=== PATIENT | female | born 1955 | race Caucasian/White ===

== ENCOUNTER 2017-12-14 23:40 | Inpatient (IN) | payer OTHER ==
[~2017-12-14] VITALS: Ht 167.6 cm; Wt 117.9 kg
--- NOTE | 2017-12-14 23:52 | PHYS DOC ---
General Chief Complaint: SOB, swelling Stated Complaint: SOA, swelling Time Seen by MD: 23:49 Source: patient, family, EMS Exam Limitations: no limitations Problems: History of Present Illness Initial Comments 62-year-old female to the ED by EMS with dyspnea. Patient states that yesterday she noticed some swelling in her left arm and leg as well as her left breast and upper chest. The swelling increased mildly throughout the day yesterday mainly in her left upper arm with associated discomfort. One hour prior to ED arrival patient states that at rest she developed dyspnea and anterior chest discomfort. She notes some swelling in her anterior upper chest and particularly left breast. She complains of an achy discomfort in her left upper arm and left chest moderate in intensity and worse with movement better with rest. She received 324 mg of aspirin prior to arrival. ED vitals: 97.9, 91, 22, 150/109, 99% room air 1 inch of Nitropaste applied blood pressure improved to 150/63 no improvement of chest pain complaints. Solu-Medrol 125 mg IV, DuoNeb for dyspnea with history of asthma, no relief of symptoms. No prior history of any type bleed (GI, intracranial), no personal history of clotting disorder/DVT. Patient PCP is on Post Timing/Duration: 1 hour Severity: moderate Modifying Factors: worse with movement, improves with rest Associated Symptoms: chest pain, shortness of breath, other Allergies: Coded Allergies: metoclopramide (Verified Allergy, Intermediate, 12/15/17) prochlorperazine (Verified Allergy, Intermediate, 12/15/17) promethazine (Verified Allergy, Intermediate, 12/15/17) theophylline (Verified Allergy, Intermediate, 12/15/17) Past Medical History Medical History: other (asthma, diabetes, hyperlipidemia, hypertension, migraine, GERD, vertigo, hypothyroidism, anxiety, depression) Surgical History: noncontributory Family History Significant Family History: other (multiple family members with DVT/clotting disorder) Social History Smoker: non-smoker Alcohol: none Drugs: none Review of Systems Constitutional: denies chills, denies diaphoresis, denies fever, denies malaise EENTM: denies ear pain (foot), denies nose congestion, denies throat swelling, denies mouth swelling Respiratory: denies cough, shortness of breath, denies wheezing (history of) Cardiovascular: see HPI Gastrointestinal: denies abdominal pain, denies nausea, denies vomiting Genitourinary: denies dysuria, denies frequency, denies hematuria Musculoskeletal: see HPI, denies back pain, denies joint swelling, denies neck pain Skin: denies change in color, denies lumps, denies rash Psychiatric/Neurological: denies headache, denies numbness, denies paresthesia , denies weakness Hematologic/Lymphatic: denies blood clots, denies easy bleeding, denies easy bruising Physical Exam General Appearance: moderate distress (very anxious) Eyes: bilateral eye normal inspection, bilateral eye PERRL, bilateral eye EOMI Ear, Nose, Throat: hearing grossly normal, normal ENT inspection, normal pharynx, other (no face or oropharyngeal soft tissue swelling) Neck: non-tender, supple Respiratory: normal breath sounds, no respiratory distress Cardiovascular: normal peripheral pulses, regular rate, rhythm Gastrointestinal: non tender, soft Back: no CVA tenderness, no vertebral tenderness Extremities: normal range of motion, non-tender, no calf tenderness, pelvis stable, other (one plus pitting lower extremity edema bilaterally, 1+ pitting left upper extremity edema no erythema or palpable subcutaneous abnormality) 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 Interpreted by me. AP chest: Poor technique, cardiac silhouette appears mildly enlarged, no discrete infiltrates interpreted by me D-dimer 1.09 (ultrasound of the left arm and leg ordered), albumin 2.8, otherwise negative blood and urine testing. 0326: Time in dept 3h 46min, prolonged ED course initially due to hemolyzed labs. Now with wait for [employer] tech to arrive from [employer], US studies are in progress. PATIENT: FARIDEH LOVELL ACCOUNT: [id number] : 1955 LOCATION: ER AGE: 62 SEX: F EXAM STATUS: REG ER ORD. PHYSICIAN: ARI AGOSTO DO REASON: L extremity swelling, elevated d-dimer PROCEDURE: VENOUS LOWER EXTREMITY LEFT Left lower extremity venous Doppler ultrasound History: LLE PAIN AND SWELLING Comparison: None. Procedure: Color flow Doppler, Doppler spectral analysis, and 2D images are obtained with and without compression in the area of the common femoral vein, superficial femoral vein - femoral vein junction, main femoral vein (superficial femoral vein) and popliteal vein. Veins of the proximal calf are also imaged. Findings: There is normal color flow, augmentation, and compressibility of all visualized vein segments. No evidence of deep venous thrombus is present. IMPRESSION: No evidence of left lower extremity deep venous thrombosis. Electronically signed by: Dixon Lovell MD (12/15/2017 3:41 AM) [facility] DICTATED AND SIGNED BY: DIXON LOVELL MD DATE: 12/15/17 0340 CC: LOY GREEN DO; ARI AGOSTO DO ~ PATIENT: FARIDEH LOVELL ACCOUNT: [id number] : 1955 LOCATION: ER AGE: 62 SEX: F EXAM STATUS: REG ER ORD. PHYSICIAN: ARI AGOSTO DO REASON: L extremity swelling, elevated d-dimer PROCEDURE: VENOUS UPPER EXTREMITY LEFT Left upper extremity venous Doppler ultrasound History: LUE PAIN AND SWELLING, elevated D DIMER Comparison: None. Procedure: Color flow Doppler, Doppler spectral analysis, and 2D images are obtained with and without compression in the jugular vein, subclavian vein, axillary vein, brachial vein, radial vein, ulnar vein, and basilic and cephalic veins. Findings: The left internal jugular vein is patent. The left subclavian vein is patent. There is occlusive thrombus in the left axillary vein. There is occlusive thrombus in the left brachial vein in the upper arm. There is occlusive thrombus in the left basilic vein in the upper arm. The left cephalic vein is patent. Left ulnar and radial veins are patent. IMPRESSION: Study is positive for DVT. There is occlusive thrombus in the left axillary and brachial veins. Electronically signed by: Dixon Lovell MD (12/15/2017 3:44 AM) [facility] DICTATED AND SIGNED BY: DIXON LOVELL MD DATE: 12/15/17 034 CC: LOY GREEN DO; SURENDRA,ARI K DO ~ 0443: PE needs to be ruled out. Adequate peripheral IV access in the right hand for medication administration, not usable for CTA study. Multiple attempts to establish larger more central vascular access unsuccessful, patient will be treated with Lovenox and VQ study may be obtained as an inpatient. 0450: Dr. Araya accepts inpatient telemetry admission for anticoagulation, serial cardiac enzymes, VQ scan, and cardiology consultation later today. Impressions: Chest pain Left upper extremity axillary and brachial DVT Moderate protein malnutrition Uncontrolled hypertension DM Departure Time of Disposition: 05:04 Disposition: 09 ADMITTED INPATIENT Condition: STABLE AIR AGOSTO DO Dec 14, 2017 23:52
--- NOTE | 2017-12-15 00:49 | EKG ---
[address] [address] Test Date: 2017-12-14 Test Time: 23:43:43 Pat Name: FARIDEH LOVELL Department: Room: Gender: F [employer] Operator: : 1955 Requested By: ARI AGOSTO Order Number: [id number] Reading MD: Measurements Intervals [place] Rate: 91 P: 65 DE: 178 QRS: 9 QRSD: 78 T: 79 QT: 356 QTc: 440 Interpretive Statements SINUS RHYTHM QRS(T) CONTOUR ABNORMALITY CONSIDER ANTEROSEPTAL MYOCARDIAL DAMAGE T ABNORMALITY IN HIGH LATERAL LEADS ABNORMAL ECG RI6.01 No previous ECG available for comparison
[2017-12-15] MEDS ORDERED: methylPREDNISolone SOD SUCC PF 125 MG/2 ML VIAL. IV ONE (01:00)
[2017-12-15] MEDS ORDERED: NITROGLYCERIN OINT 1 GM PACKET. TP ONE (01:00)
[2017-12-15] MEDS ORDERED: IPRATRPIUM/ALBUTEROL 0.5/2.5MG 3 ML NEBU. NEB ONE (01:00)
[2017-12-15 01:22] LABS: BASO # 0.1 x10^3/uL (0.0-0.2); BASO % 1 % (0-3); EOS # 0.3 x10^3/uL (0.0-0.7); EOS % 3 % (0-3); HEMATOCRIT 36.8 % (36.0-47.0); LYMPH # 2.7 x10^3/uL (1.0-4.8); LYMPH % 27 % (24-48); MEAN CORPUSCULAR HEMOGLOBIN 30 pg (25-35); MEAN CORPUSCULAR HGB CONC 33 g/dL (31-37); MEAN CORPUSCULAR VOLUME 91 fL (79-100); MONO # 0.6 x10^3/uL (0.0-1.1); MONO % 6 % (0-9); NEUT # 6.5 x10^3uL (1.8-7.7); NEUT % 63 % (31-73); PLATELET COUNT 262 x10^3/uL (140-400); RED BLOOD COUNT 4.04 x10^6/uL (3.50-5.40); RED CELL DISTRIBUTION WIDTH 14.4 % (11.5-14.5); WHITE BLOOD COUNT 10.2 x10^3/uL (4.0-11.0)
[2017-12-15 01:35] LABS: ALBUMIN 2.8 g/dL (3.4-5.0); ALBUMIN/GLOBULIN RATIO 0.7 (1.0-1.7); CALCIUM 8.7 mg/dL (8.5-10.1); CREATININE 0.9 mg/dL (0.6-1.0); GFR 63.7; TOTAL BILIRUBIN 0.1 mg/dL (0.2-1.0); TOTAL PROTEIN 6.9 g/dL (6.4-8.2)
[2017-12-15 02:13] LABS: BACTERIA,URINE 0 /HPF (0-FEW); BILIRUBIN,URINE NEG (NEG); CLARITY,URINE CLEAR; COLOR,URINE YELLOW; GLUCOSE,URINE NEG (NEG); NITRITE,URINE NEG (NEG); RBC,URINE 0 /HPF (0-2); SQUAMOUS EPITHELIAL CELL,UR MOD /LPF; UROBILINOGEN,URINE 0.2 mg/dL (0.2 mg/dL); WBC,URINE RARE /HPF (0-4)
[2017-12-15] MEDS ORDERED: LORazepam 2 MG/ML VIAL IV ONE (03:00)
--- NOTE | 2017-12-15 03:44 | RAD ---
Left lower extremity venous Doppler ultrasound History: LLE PAIN AND SWELLING Comparison: None. Procedure: Color flow Doppler, Doppler spectral analysis, and 2D images are obtained with and without compression in the area of the common femoral vein, superficial femoral vein - femoral vein junction, main femoral vein (superficial femoral vein) and popliteal vein. Veins of the proximal calf are also imaged. Findings: There is normal color flow, augmentation, and compressibility of all visualized vein segments. No evidence of deep venous thrombus is present. IMPRESSION: No evidence of left lower extremity deep venous thrombosis. Electronically signed by: Dixon Lovell MD (12/15/2017 3:41 AM) [facility]
--- NOTE | 2017-12-15 03:47 | RAD ---
Left upper extremity venous Doppler ultrasound History: LUE PAIN AND SWELLING, elevated D DIMER Comparison: None. Procedure: Color flow Doppler, Doppler spectral analysis, and 2D images are obtained with and without compression in the jugular vein, subclavian vein, axillary vein, brachial vein, radial vein, ulnar vein, and basilic and cephalic veins. Findings: The left internal jugular vein is patent. The left subclavian vein is patent. There is occlusive thrombus in the left axillary vein. There is occlusive thrombus in the left brachial vein in the upper arm. There is occlusive thrombus in the left basilic vein in the upper arm. The left cephalic vein is patent. Left ulnar and radial veins are patent. IMPRESSION: Study is positive for DVT. There is occlusive thrombus in the left axillary and brachial veins. Electronically signed by: Dixon Lovell MD (12/15/2017 3:44 AM) [facility]
[2017-12-15] MEDS ORDERED: CONTRAST GIVEN MC PRN (04:15)
[2017-12-15] MEDS ORDERED: ONDANSETRON ODT 4 MG TAB.RAPDIS PO ONE (04:30)
[2017-12-15] MEDS ORDERED: IOHEXOL 300 MG/ML 75 ML VIAL. IV ONE (04:30)
[2017-12-15] MEDS ORDERED: HYDROcodone/APAP 7.5/325MG 1 TAB TABLET PO ONE (04:30)
[2017-12-15] MEDS ORDERED: ANTI-COAG MONITOR BY PHARMACY. MC PRN (04:45)
[2017-12-15] MEDS ORDERED: ACETAMINOPHEN 325 MG TABLET PO PRN (05:00)
[2017-12-15] MEDS ORDERED: ENOXAPARIN ** NOTE DOSE ** SYRINGE SQ ONE (05:00)
[2017-12-15] MEDS ORDERED: ONDANSETRON PF 4 MG/2 ML VIAL. IV PRN (05:00)
[2017-12-15] MEDS ORDERED: NITROGLYCERIN SUBLINGUAL 0.4 MG BOTTLE OF 25. SL PRN (05:00)
[2017-12-15 06:06] VITALS: BP 167/93
[2017-12-15] MEDS ORDERED: OMEP40CA5 PO (06:44)
[2017-12-15] MEDS ORDERED: MULT80TA PO (06:44)
[2017-12-15] MEDS ORDERED: ALPR0.5T6 PO (06:44)
[2017-12-15] MEDS ORDERED: RIZA10TA PO (06:44)
[2017-12-15] MEDS ORDERED: DICL75TA PO (06:44)
[2017-12-15] MEDS ORDERED: ESZO3TAB28 PO (06:44)
[2017-12-15] MEDS ORDERED: LAMO150T2 PO (06:44)
[2017-12-15] MEDS ORDERED: CRESTOR10 MG PO (06:44)
[2017-12-15] MEDS ORDERED: RAMI10CA PO (06:44)
[2017-12-15] MEDS ORDERED: LEVO125T5 PO (06:44)
[2017-12-15] MEDS ORDERED: TOPI100T8 PO (06:44)
[2017-12-15] MEDS ORDERED: BUPR100T8 PO (06:44)
[2017-12-15] MEDS ORDERED: ALBU8.5H8 INH (06:44)
[2017-12-15] MEDS ORDERED: BUME1TAB PO (06:44)
[2017-12-15] MEDS ORDERED: SUCR1TAB PO (06:44)
[2017-12-15] MEDS ORDERED: DULO30CA2 PO (06:44)
[2017-12-15] MEDS ORDERED: MECL25TA3 PO (06:44)
[2017-12-15] MEDS ORDERED: ZIPR80CA2 PO (06:44)
[2017-12-15] MEDS ORDERED: CHOL10003 PO (06:44)
[2017-12-15] MEDS ORDERED: BUDE10.2 IH (06:44)
--- NOTE | 2017-12-15 07:22 | RAD ---
Portable AP view CXR: Clinical indications: Shortness of air tonight. Comparison: None available. Findings: No acute lung infiltrate or pleural effusion or pulmonary edema or lung mass or pneumothorax is seen. The heart size, pulmonary vasculature, mediastinum and both lala are unremarkable. Impression: No acute radiographic abnormality is seen.
[2017-12-15] MEDS ORDERED: PNEUMOCOCCAL VAX SCREEN. MC ONE (07:30)
--- NOTE | 2017-12-15 07:46 | NUR ---
The patient, FARIDEH LOVELL, 62 y/o, F admitted by KIARRA VASQUEZ DO, was given written information regarding hospital policies, unit procedures and contact persons. Valuables were checked and left in room with pt. is at the bedside. Pt report that she started to notice some swelling of her left arm and leg last night, they was an aching pressure on her chest. When dressing for bed she notice that there was swelling starting on her chest and that the veins on her chest were popping out more than normal. LUE DVT found, unable to get a large enough IV in for Chest CT in ER, VQ scan ordered instead.
[2017-12-15] MEDS: IPRATRPIUM/ALBUTEROL 0.5/2.5MG 3 ML NEBU. NEB SCH ×2 (08:00→10:21)
[2017-12-15] MEDS ORDERED: ALBUTEROL SULFATE 2.5 MG/3 ML NEBU. NEB PRN ×2 (08:45→16:15)
[2017-12-15] MEDS ORDERED: PNEUMOC CONJ VACC 23-VALENT 0.5 ML VIAL. VAX IM ONE (09:00)
[2017-12-15] MEDS: HYDROcodone/APAP 5/325MG 1 TAB TABLET PO PRN ×2 (10:13→15:52)
[2017-12-15 11:00] VITALS: BP 124/73
--- NOTE | 2017-12-15 11:24 | PDOC2 ---
WALLY LOPEZ ASSISTANT IN NURSING 12/15/17 1124: CONSULT Date of Admission DATE: 12/15/17 TIME: 11:24 Reason for Consult: chest pain Problem List Problems Medical Problems: (1) DVT of left axillary vein, acute Status: Acute History of Present Illness Ms Vazquez is a 62 year old female who presents with complaints of chest pain , left arm and breast swelling. She reports she noticed the symptoms while getting dressed. She was given NTG in the ED which did improve her chest discomfort. She denies any increase with exertion or position change. She denies any prior chest discomfort but does report significant fatigue over the last week or so. She denies significant dyspnea or congestive symptoms. She denies palpitations. She does report intermittent lightheadedness without syncope. Past Medical History hypertension, hyperlipidemia, borderline diabetes, meniere's disease, asthma, breast cancer, anxiety depression, breast cancer, hypothyroid, migraines, vertigo Past Surgical History cochlear implant, right mastectomy, knee surgery, hysterectomy, cholecystectomy Family History multiple family members with DVTs, coronary disease, hypertension Social History non smoker, no significant ETOH, no illicit drugs Current Medications Current Medications Methylprednisolone Sodium Succinate (SOLU-Medrol 125MG VIAL) 125 mg 1X ONCE IV Last administered on 12/15/17at 01:00; Start 12/15/17 at 01:00; Stop 12/15/17 at 01:01; Status DC Albuterol/ Ipratropium (Duoneb) 3 ml 1X ONCE NEB Last administered on at 01:00; Start 12/15/17 at 01:00; Stop 12/15/17 at 01:01; Status DC Nitroglycerin (Nitro-Bid Oint) 1 inch 1X ONCE TP Last administered on at 01:00; Start 12/15/17 at 01:00; Stop 12/15/17 at 01:01; Status DC Lorazepam (Ativan) 1 mg 1X ONCE IV ; Start 12/15/17 at 03:00; Stop 12/15/17 at 04 :22; Status DC Acetaminophen/ Hydrocodone Bitart (Lortab 7.5/325) 1 tab 1X ONCE PO Last administered on 12/15/17at 04:55; Start 12/15/17 at 04:30; Stop 12/15/17 at 04:31; Status DC Ondansetron HCl (Zofran Odt) 8 mg 1X ONCE PO Last administered on 12/15/17at 05: 00; Start 12/15/17 at 04:30; Stop 12/15/17 at 04:31; Status DC Iohexol (Omnipaque 300 Mg/ml) 75 ml 1X ONCE IV ; Start 12/15/17 at 04:30; Stop 12/15/17 at 04:31; Status DC Info (Do NOT chart on this entry -- for MONITORING) 1 each PRN DAILY PRN MC SEE COMMENTS; Start 12/15/17 at 04:15; Stop 12/17/17 at 04:14 Enoxaparin Sodium (Lovenox 120mg Syringe) 120 mg Q12HR SQ ; Start 12/15/17 at 21: 00 Enoxaparin Sodium (Lovenox 120mg Syringe) 120 mg 1X ONCE SQ Last administered on 12/15/17at 04:55; Start 12/15/17 at 05:00; Stop 12/15/17 at 05:02; Status DC Info (Anti-Coagulation Monitoring By Pharmacy) 1 each PRN DAILY PRN MC SEE COMMENTS; Start 12/15/17 at 04:45; Status Cancel Ondansetron HCl (Zofran) 4 mg PRN Q4HRS PRN IV NAUSEA/VOMITING; Start 12/15/17 at 05:00; Stop 12/16/17 at 04:59 Acetaminophen (Tylenol) 650 mg PRN Q4HRS PRN PO FEVER; Start 12/15/17 at 05:00; Stop 12/16/17 at 04:59 Nitroglycerin (Nitrostat) 0.4 mg PRN Q5MIN PRN SL CHEST PAIN; Start 12/15/17 at 05:00; Stop 12/16/17 at 04:59 Albuterol/ Ipratropium (Duoneb) 3 ml RTQID NEB ; Start 12/15/17 at 08:00; Stop at 10:39; Status DC Acetaminophen/ Hydrocodone Bitart (Lortab 5/325) 1 tab PRN Q4HRS PRN PO SEVERE PAIN Last administered on 12/15/17at 10:13; Start 12/15/17 at 05:00 Pneumococcal Polyvalent Vaccine (Do NOT chart on this entry -- for MONITORING) 1 each 1X ONCE MC ; Start 12/15/17 at 07:30; Stop 12/15/17 at 07:31; Status UNV Pneumococcal Polyvalent Vaccine (Pneumovax 23) 0.5 ml ONCE ONCE VAX IM ; Start 12/15/17 at 09:00; Stop 12/15/17 at 09:01; Status DC Albuterol Sulfate (Ventolin) 2.5 mg Q2HR PRN NEB SHORTNESS OF BREATH; Start 12/15/17 at 08:45 Active Scripts Active Reported Geodon (Ziprasidone Hcl) 80 Mg Capsule 80 Mg PO BID Topiramate 100 Mg Tablet 100 Mg PO BID Symbicort 160-4.5 Mcg Inhaler (Budesonide/Formoterol Fumarate) 10.2 Gm Hfa.aer.ad 2 Puff IH BID Sucralfate 1 Gm Tablet 1 Gm PO QID Crestor (Rosuvastatin Calcium) 10 Mg Tablet 10 Mg PO DAILY Ramipril 10 Mg Capsule 10 Mg PO DAILY Proair Hfa Inhaler (Albuterol Sulfate) 8.5 Gm Hfa.aer.ad 2 Puff INH PRN Q4-6HRS PRN Omeprazole 40 Mg Capsule.dr 40 Mg PO DAILYAC Maxalt (Rizatriptan Benzoate) 10 Mg Tablet 10 Mg PO Meclizine Hcl 25 Mg Tablet 25 Mg PO PRN TID PRN Lunesta (Eszopiclone) 3 Mg Tablet 2 Mg PO QHS Levothyroxine Sodium 125 Mcg Tablet 125 Mcg PO DAILY06 Lamotrigine 150 Mg Tablet 150 Mg PO DAILY Cymbalta (Duloxetine Hcl) 30 Mg Capsule.dr 90 Mg PO DAILY Diclofenac Sodium 75 Mg Tablet.dr 75 Mg PO DAILY Vitamin D3 (Cholecalciferol (Vitamin D3)) 1,000 Unit Tablet 1,000 Unit PO DAILY Centrum Multigummies (Multivit-Minerals/Folic Acid) 80 Mcg Tab.chew 80 Mcg PO DAILY Bupropion Hcl Sr (Bupropion Hcl) 100 Mg Tablet.er 100 Mg PO DAILY Bumetanide 1 Mg Tablet 0.5 Mg PO DAILY Alprazolam 0.5 Mg Tablet 0.5 Mg PO BID PRN Allergies: Coded Allergies: metoclopramide (Verified Allergy, Intermediate, 12/15/17) prochlorperazine (Verified Allergy, Intermediate, 12/15/17) promethazine (Verified Allergy, Intermediate, 12/15/17) theophylline (Verified Allergy, Intermediate, 12/15/17) Review of System as per HPI or negative General: Alert, Oriented X3, Cooperative, No acute distress HEENT: Atraumatic, EOMI, Mucous membr. moist/pink Lungs: Clear to auscultation, Normal air movement Heart: Regular rate, Normal S1, Normal S2 Abdomen: Normal bowel sounds, Soft, No tenderness Extremities: No cyanosis, Normal pulses, Other (+ left arm edema) Neuro: Normal speech, Strength at 5/5 X4 ext Psych/Mental Status: Mental status NL, Mood NL VITALS Vital Signs Date Time Temp Pulse Resp B/P (MAP) Pulse Ox O2 Delivery O2 Flow Rate FiO2 12/15/17 10:13 18 Room Air 12/15/17 06:06 98.1 101 167/93 (117) 93 Labs Laboratory Tests Test 12/15/17 01:00 12/15/17 01:48 12/15/17 04:51 12/15/17 08:55 White Blood Count 10.2 x10^3/uL (4.0-11.0) Red Blood Count 4.04 x10^6/uL (3.50-5.40) Hemoglobin 12.0 g/dL (12.0-15.5) Hematocrit 36.8 % (36.0-47.0) Mean Corpuscular Volume 91 fL (79-100) Mean Corpuscular Hemoglobin 30 pg (25-35) Mean Corpuscular Hemoglobin Concent 33 g/dL (31-37) Red Cell Distribution Width 14.4 % (11.5-14.5) Platelet Count 262 x10^3/uL (140-400) Neutrophils (%) (Auto) 63 % (31-73) Lymphocytes (%) (Auto) 27 % (24-48) Monocytes (%) (Auto) 6 % (0-9) Eosinophils (%) (Auto) 3 % (0-3) Basophils (%) (Auto) 1 % (0-3) Neutrophils # (Auto) 6.5 x10^3uL (1.8-7.7) Lymphocytes # (Auto) 2.7 x10^3/uL (1.0-4.8) Monocytes # (Auto) 0.6 x10^3/uL (0.0-1.1) Eosinophils # (Auto) 0.3 x10^3/uL (0.0-0.7) Basophils # (Auto) 0.1 x10^3/uL (0.0-0.2) D-Dimer (Alessandra) 1.09 mg/L (0.00-0.50) Sodium Level 138 mmol/L (136-145) Potassium Level 4.0 mmol/L (3.5-5.1) Chloride Level 107 mmol/L (98-107) Carbon Dioxide Level 19 mmol/L (21-32) Anion Gap 12 (6-14) Blood Urea Nitrogen 20 mg/dL (7-20) Creatinine 0.9 mg/dL (0.6-1.0) Estimated GFR (Cockcroft-Gault) 63.7 BUN/Creatinine Ratio 22 (6-20) Glucose Level 112 mg/dL (70-99) Calcium Level 8.7 mg/dL (8.5-10.1) Total Bilirubin 0.1 mg/dL (0.2-1.0) Aspartate Amino Transf (AST/SGOT) 18 U/L (15-37) Alanine Aminotransferase (ALT/SGPT) 23 U/L (14-59) Alkaline Phosphatase 109 U/L (46-116) Creatine Kinase 42 U/L (26-192) Troponin I Quantitative < 0.017 ng/mL (0-0.055) < 0.017 ng/mL (0-0.055) < 0.017 ng/mL (0-0.055) CC-Rjp-I-Type Natriuretic Peptide 40 pg/mL (0-124) Total Protein 6.9 g/dL (6.4-8.2) Albumin 2.8 g/dL (3.4-5.0) Albumin/Globulin Ratio 0.7 (1.0-1.7) Lipase 67 U/L (73-393) Urine Collection Type Unknown Urine Color Yellow Urine Clarity Clear Urine pH 7.0 Urine Specific Ponce 1.015 Urine Protein Neg (NEG-TRACE) Urine Glucose (UA) Neg mg/dL (NEG) Urine Ketones (Stick) Neg mg/dL (NEG) Urine Blood Neg (NEG) Urine Nitrite Neg (NEG) Urine Bilirubin Neg (NEG) Urine Urobilinogen Dipstick 0.2 mg/dL (0.2 mg/dL) Urine Leukocyte Esterase Neg (NEG) Urine RBC 0 /HPF (0-2) Urine WBC Rare /HPF (0-4) Urine Squamous Epithelial Cells Mod /LPF Urine Bacteria 0 /HPF (0-FEW) Images upper arm sono - IMPRESSION: Study is positive for DVT. There is occlusive thrombus in the left axillary and brachial veins. Lower extremity - negative for DVT. Assessment/Plan 1. Chest pain - NC ruled out. Check echo, lipids. Suggest OP MPI. 2. DVT left axillary and brachial veins - Anticoagulation for 3-6 months. mgmt per PCP. ? underlying coagulopathy. Consider check factor V, Protein s, c. 3. hypertension - resume home meds 4. hyperlipidemia - check lipids Problems: CARYN PARKER MD 12/15/17 1651: CONSULT Allergies: Coded Allergies: metoclopramide (Verified Allergy, Intermediate, 12/15/17) prochlorperazine (Verified Allergy, Intermediate, 12/15/17) promethazine (Verified Allergy, Intermediate, 12/15/17) theophylline (Verified Allergy, Intermediate, 12/15/17) Assessment/Plan Patient seen and examined. Agree with PATHOLOGY SECRETARY's assessment and plan. Chest pain with atypical features and most probably musculoskeletal Myocardial infarction been ruled out Check 2-D echo to assess LV function and rule out wall motion abnormalities Ischemic workup in the form of stress test could be considered as an outpatient Thank you for your consultation Problems: WALLY LOPEZ APRN Dec 15, 2017 11:24 CARYN PARKER MD Dec 15, 2017 16:51
--- NOTE | 2017-12-15 12:57 | RAD ---
V/Q lung scan Clinical indications: Elevated d-dimer. Chest pain. Dyspnea. DVT of the left upper extremity. Comparison: Chest x-ray performed today. No previous lung scan available. Technique: After inhalation of 22.0 mCi of xenon-133 gas, anterior and posterior planar images of both lung hendricks were performed in the inspiration and equilibrium and washout phases. After IV infusion of 5.2 mCi of technetium 99m MAA, multiplanar images of both lung hendricks were performed. Findings: No ventilatory defect or significant retention of radiotracer activity is seen. No segmental perfusion defect is seen. IMPRESSION: Low probability for pulmonary embolism.
--- NOTE | 2017-12-15 15:33 | RAD ---
CT angiography chest 12/15/2017 with contrast Indication: Breast cancer. Left upper extremity deep venous thrombosis. Comparison: Ventilation perfusion scintigraphy 12/15/2017. Technique: Multiple axial CT images of the chest were obtained after the intravenous administration of 74 cc Omnipaque 300. Coronal and sagittal reformats are provided. Maximum intensity projection images of the pulmonary vasculature are provided. Findings: The thyroid gland is normal in appearance. There are no pathologically enlarged mediastinal or hilar lymph nodes. Surgical clips are identified in the right axilla. There is mild edema in the left axilla with few nonenlarged left axillary lymph nodes measuring up to a 6 mm by short axis. Heart size is within normal limits. Thoracic aorta is normal in course and caliber. There is no pericardial effusion. There is adequate opacification of the pulmonary arterial system for evaluation of the central pulmonary artery, main pulmonary artery arteries, lobar and segmental pulmonary arteries. Subsegmental arteries are limited in evaluation due to inadequate contrast opacification. No filling defects are identified to suggest acute or chronic pulmonary emboli. There is subsegmental atelectasis at the left lung base. Bandlike density in the right upper lobe is suggestive of subsegmental atelectasis. No suspicious solid noncalcified pulmonary nodules are visualized. There are no pleural effusions. There is no pulmonary vascular congestion. There is no pneumothorax. Gallbladder is surgically absent. Partial gastrectomy changes are present. Spinal epidural leads terminate in the posterior epidural space of the midthoracic spine. No suspicious osseous abnormality is identified. Impression: There is no acute pulmonary embolism with limited evaluation of the subsegmental pulmonary arteries. There is mild edema in the left axilla but nonenlarged left axillary lymph nodes, likely secondary to inflammatory changes and edema in the left upper extremity. PQRS Compliance Statement: One or more of the following individualized dose reduction techniques were utilized for this examination: 1. Automated exposure control 2. Adjustment of the mA and/or kV according to patient size 3. Use of iterative reconstruction technique
--- NOTE | 2017-12-15 15:41 | HP ---
ADMIT DATE: 12/15/2017 REASON FOR ADMISSION: Left upper extremity DVT. HISTORY OF PRESENT ILLNESS: This is a 62-year-old female who 2 nights ago noticed that her leg started hurting her with the left more than the right. Yesterday morning, she got up and noticed her left arm is so swollen that her knuckles hurt. She also noticed the left side of her body was enlarged and her veins are popping out. Her chest was hurting and she felt like she could not breathe. She has a significant family history of multiple people with blood clot also. She had taken a 2-hour car drive to [place] over the weekend. She states her brother noticed that she was quite fatigued. PAST MEDICAL HISTORY: Meniere's disease, degenerative disk disease of the back, sciatica, left knee pain, hypothyroidism, hypertension, hyperlipidemia and breast cancer in the past. She was seen in September, had a mammogram, which was negative. PAST SURGICAL HISTORY: Right mastectomy and reconstruction. FAMILY HISTORY: Positive for cancer and heart disease. Mother had tachycardia and dysrhythmias. Brother with tachycardia. Sister with heart disease. Father with heart attack at 52. IMMUNIZATIONS: Did not get the flu shot. REVIEW OF SYSTEMS: Weight increased 14 pounds and rest consistent with history of present illness. OBJECTIVE: VITAL SIGNS: Blood pressure 124/73, pulse 101, temperature 98.3, respiratory rate 20, pulse ox 91% on room air, but others 96, 95. HEENT: Hearing was normal. Eyes were clear. Nose was patent. Throat was clear. NECK: Supple without adenopathy. LUNGS: Clear to auscultation. CARDIOVASCULAR: Regular rhythm and rate without murmur. ABDOMEN: Soft, obese, nontender. EXTREMITIES: Without edema, no cords noted. Left arm extremely swollen. It is neurologically intact. Color is good. She has good capillary refill and radial pulses are strong. DIAGNOSTIC DATA: Lower extremity ultrasounds are negative for DVT. Upper extremity ultrasound reveals an occlusive thrombus in the left axillary and brachial veins and the subclavian vein is patent. V/Q scan shows low probability for pulmonary embolism. CT of the chest without contrast has not been read. ASSESSMENT: 1. Large left upper extremity deep vein thrombosis, questionable etiology. 2. History of breast cancer. 3. Morbid obesity. 4. Sleep apnea suspect. 5. Meniere's disease. 6. Chronic low back pain. 7. Hypertension. 8. Hypothyroidism. PLAN: Full dose anticoagulation for at least a week and if she is not better, may consider lysis. We will start her on Eliquis tomorrow and will await the results of CT, also was seen by Cardiology and should have a Lexiscan done as an outpatient. KIARRA VASQUEZ DO DR: ISABEL/sky JOB#: [id number] / [id number]
[2017-12-15] MEDS ORDERED: ALBUTEROL SULFATE 8GM INHALER. INH PRN (16:00)
[2017-12-15] MEDS ORDERED: ALPRAZolam 0.5 MG TABLET PO PRN (16:00)
[2017-12-15] MEDS ORDERED: MECLIZINE 12.5 MG TABLET. PO PRN (16:15)
[2017-12-15 16:16] VITALS: BP 147/83
[2017-12-15] MEDS: BUMETANIDE 1 MG TABLET PO SCH (17:52)
[2017-12-15] MEDS: PRENATAL MULTIVITAMIN TABLET. PO SCH (17:53)
[2017-12-15] MEDS: lamoTRIgine 150 MG TABLET. PO SCH (17:53)
[2017-12-15] MEDS: DULoxetine HCL 30 MG CAPSULE.DR PO SCH (17:53)
[2017-12-15] MEDS: LISINOPRIL 20 MG TABLET PO SCH (17:54)
[2017-12-15] MEDS: buPROPion SR 100 MG TABLET.SA. PO SCH (17:54)
[2017-12-15] MEDS: LEVOTHYROXINE 125 MCG TABLET PO SCH (17:54)
[2017-12-15] MEDS: PANTOPRAZOLE 40 MG TABLET. PO SCH (17:54)
[2017-12-15] MEDS: DICLOFENAC SODIUM 75 MG TABLET.DR PO SCH (17:54)
[2017-12-15] MEDS: CHOLECALCIFEROL (VITAMIN D3) 1,000 UNIT TABLET PO SCH (17:54)
[2017-12-15] MEDS: SUCRALFATE 1 GM TABLET. PO SCH ×2 (17:55→20:38)
[2017-12-15] MEDS ORDERED: BUDESONIDE 0.5 MG/2 ML NEBU NEB SCH (20:00)
[2017-12-15] MEDS: ALBUTEROL SULFATE 2.5 MG/3 ML NEBU. NEB SCH (20:00)
[2017-12-15 20:01] VITALS: BP 100/60
[2017-12-15] MEDS: TOPIRAMATE 100 MG TABLET. PO SCH (20:37)
[2017-12-15] MEDS: ZIPRASIDONE 80 MG CAPSULE. PO SCH (20:40)
[2017-12-15] MEDS ORDERED: ZOLPIDEM 5 MG TABLET. PO PRN (21:00)
[2017-12-15] MEDS ORDERED: ENOXAPARIN ** NOTE DOSE ** SYRINGE SQ SCH (21:00)
[2017-12-15] MEDS ORDERED: ATORVASTATIN CALCIUM 20 MG TABLET PO SCH (21:00)
[2017-12-15] MEDS: BUDESONIDE 0.5 MG/2 ML NEBU NEB SCH (21:31)
[2017-12-15 23:13] VITALS: BP 131/75
[2017-12-16] MEDS: LEVOTHYROXINE 125 MCG TABLET PO SCH (05:37)
[2017-12-16] MEDS: ALBUTEROL SULFATE 2.5 MG/3 ML NEBU. NEB SCH ×2 (05:39→09:54)
[2017-12-16 06:10] VITALS: BP 141/84
[2017-12-16 06:37] LABS: BASO % 0 % (0-3); EOS # 0.1 x10^3/uL (0.0-0.7); EOS % 1 % (0-3); HEMATOCRIT 37.1 % (36.0-47.0); HEMOGLOBIN 12.2 g/dL (12.0-15.5); LYMPH # 3.3 x10^3/uL (1.0-4.8); LYMPH % 29 % (24-48); MEAN CORPUSCULAR HEMOGLOBIN 30 pg (25-35); MEAN CORPUSCULAR HGB CONC 33 g/dL (31-37); MEAN CORPUSCULAR VOLUME 91 fL (79-100); MONO # 0.6 x10^3/uL (0.0-1.1); MONO % 5 % (0-9); NEUT # 7.5 x10^3uL (1.8-7.7); NEUT % 65 % (31-73); PLATELET COUNT 308 x10^3/uL (140-400); WHITE BLOOD COUNT 11.4 x10^3/uL (4.0-11.0)
[2017-12-16 06:45] LABS: ALBUMIN 2.9 g/dL (3.4-5.0); ALBUMIN/GLOBULIN RATIO 0.7 (1.0-1.7); CALCIUM 9.2 mg/dL (8.5-10.1); CREATININE 0.9 mg/dL (0.6-1.0); GFR 63.7; MAGNESIUM 1.9 mg/dL (1.8-2.4); POTASSIUM 3.8 mmol/L (3.5-5.1); TOTAL BILIRUBIN 0.1 mg/dL (0.2-1.0); TOTAL PROTEIN 7.2 g/dL (6.4-8.2)
[2017-12-16] MEDS: BUDESONIDE 0.5 MG/2 ML NEBU NEB SCH (08:00)
[2017-12-16] MEDS ORDERED: APIXABAN 5 MG TABLET. PO SCH (09:00)
[2017-12-16] MEDS: PANTOPRAZOLE 40 MG TABLET. PO SCH (09:00)
[2017-12-16] MEDS: BUMETANIDE 1 MG TABLET PO SCH (09:01)
[2017-12-16] MEDS: CHOLECALCIFEROL (VITAMIN D3) 1,000 UNIT TABLET PO SCH (09:01)
[2017-12-16] MEDS: DULoxetine HCL 30 MG CAPSULE.DR PO SCH (09:02)
[2017-12-16 09:03] VITALS: BP 141/84
[2017-12-16] MEDS: LISINOPRIL 20 MG TABLET PO SCH (09:03)
[2017-12-16] MEDS: TOPIRAMATE 100 MG TABLET. PO SCH (09:03)
[2017-12-16] MEDS: buPROPion SR 100 MG TABLET.SA. PO SCH (09:03)
[2017-12-16] MEDS: PRENATAL MULTIVITAMIN TABLET. PO SCH (09:03)
[2017-12-16] MEDS: DICLOFENAC SODIUM 75 MG TABLET.DR PO SCH (09:04)
[2017-12-16] MEDS: ZIPRASIDONE 80 MG CAPSULE. PO SCH (09:04)
[2017-12-16] MEDS: lamoTRIgine 150 MG TABLET. PO SCH (09:04)
--- NOTE | 2017-12-16 11:02 | CARD ---
MR#: [id number] Date of Study: 12/16/2017 Ordering Physician: WALLY LOPEZ, Referring Physician: KIARRA VASQUEZ Tech: Kami Davis RDCS APPROVED REPORT EXAM: Two-dimensional and M-mode echocardiogram with Doppler and color Doppler. Other Information Quality : Technically Limited Technically limited study due to body habitus. INDICATION Chest Pain 2D DIMENSIONS RVDd2.5 (2.9-3.5cm)Left Atrium(2D)3.0 (1.6-4.0cm) IVSd1.1 (0.7-1.1cm)Aortic Root(2D)2.5 (2.0-3.7cm) LVDd3.6 (3.9-5.9cm)LVOT Diameter1.9 (1.8-2.4cm) PWd1.1 (0.7-1.1cm)LVDs2.6 (2.5-4.0cm) FS (%) 28.4 %SV31.2 ml LVEF(%)55.7 (>50%) Aortic Valve AoV Peak Rj.152.8cm/sAoV VTI25.9cm AO Peak GR.9.3mmHgLVOT Peak Rj.132.8cm/s LVOT VTI 26.21cmAO Mean GR.5mmHg SHEYLA (VMAX)2.16eq3ECC (VTI)2.75cm2 Mitral Valve MV E Hvrjojvr792.2cm/sMV DECEL [id number] MV A Dywsaqxb09.1cm/sE/A Ratio1.3 Pulmonary Vein S1 Xvxtnbbl60.3cm/sD2 Kqfitnqk74.0cm/s LEFT VENTRICLE The left ventricle is normal size. There is normal left ventricular wall thickness. The left ventricu lar systolic function is normal and the ejection fraction is within normal range. The Ejection Fracti on is 55-60%. There is normal LV segmental wall motion. Transmitral Doppler flow pattern is Grade II- pseudonormal filling dynamics. RIGHT VENTRICLE The right ventricle is normal size. The right ventricular systolic function is normal. ATRIA The left atrium size is normal. The right atrium size is normal. The interatrial septum is intact wit h no evidence for an atrial septal defect or patent foramen ovale as noted on 2-D or Doppler imaging. AORTIC VALVE The aortic valve is not well visualized. Doppler and Color Flow revealed no significant aortic regurg itation. There is no significant aortic valvular stenosis. MITRAL VALVE The mitral valve is calcified but opens well. There is no evidence of mitral valve prolapse. There is no mitral valve stenosis. Doppler and Color-flow revealed trace mitral regurgitation. TRICUSPID VALVE Not well visualized. Doppler and Color Flow revealed no tricuspid valve regurgitation noted. There is no tricuspid valve stenosis. PULMONIC VALVE The pulmonic valve is not well visualized. Doppler and Color Flow revealed trace pulmonic valvular re gurgitation. There is no pulmonic valvular stenosis. GREAT VESSELS The aortic root is normal in size. The ascending aorta is not well seen. IVC not well visualized. PERICARDIAL EFFUSION There is no evidence of significant pericardial effusion. Critical Notification Critical Value: No <Conclusion> The left ventricular systolic function is normal and the ejection fraction is within normal range. Th e Ejection Fraction is 55-60%. There is normal LV segmental wall motion. Signed by : Javed Quiroga, Electronically Approved : 12/16/2017 11:02:30
[2017-12-16] MEDS ORDERED: APIX5TAB3 PO (11:16)
[2017-12-16] MEDS: SUCRALFATE 1 GM TABLET. PO SCH (11:18)
--- NOTE | 2017-12-16 12:00 | NUR ---
Discharge Note: FARIDEH LOVELL [address] Discharge instructions and discharge home medications reviewed with PATIENT & SPOUSE and a copy given. All questions have been answered and understanding verbalized. The following instructions and handouts were given: MEDICATIONS, FOLLOW UP INSTRUCTIONS, IMAGING RESULTS AND EDUCATIONAL HANDOUTS GIVEN. Discontinued lines and drains: PERIPHERAL IV DISCONTINUED WITH NO COMPLICATIONS. Patient discharged to HOME with SPOUSE via PRIVATE VEHICLE.
--- NOTE | 2017-12-16 13:39 | PDOC3 ---
Discharge Summary Visit Information Date of Admission: Dec 15, 2017 Date of Discharge: Dec 16, 2017 Final Diagnosis Problems Medical Problems: (1) DVT of left axillary vein, acute Status: Acute ASSESSMENT: 1. Large left upper extremity deep vein thrombosis, questionable etiology. 2. History of breast cancer. 3. Morbid obesity. 4. Sleep apnea suspect. 5. Meniere's disease. 6. Chronic low back pain. 7. Hypertension. 8. Hypothyroidism. 9.. Chest pain - [place] ruled out. Check echo, lipids. Suggest OP MPI. 2. DVT left axillary and brachial veins - Anticoagulation for 3-6 months. mgmt per PCP. ? underlying coagulopathy. Consider check factor V, Protein s, c. 3. hypertension - resume home meds 4. hyperlipidemia - check lipids Problems: Problems: Brief Hospital Course Allergies Allergies Coded Allergies Type Severity Reaction Last Updated Verified metoclopramide Allergy Intermediate 12/15/17 Yes prochlorperazine Allergy Intermediate 12/15/17 Yes promethazine Allergy Intermediate 12/15/17 Yes theophylline Allergy Intermediate 12/15/17 Yes Vital Signs Vital Signs Date Time Temp Pulse Resp B/P (MAP) Pulse Ox O2 Delivery O2 Flow Rate FiO2 12/16/17 09:03 95 141/84 12/16/17 08:00 Room Air 12/16/17 06:10 97.4 20 97 Lab Results Laboratory Tests Test 12/15/17 01:00 12/15/17 01:48 12/15/17 04:51 12/15/17 08:55 White Blood Count 10.2 x10^3/uL (4.0-11.0) Red Blood Count 4.04 x10^6/uL (3.50-5.40) Hemoglobin 12.0 g/dL (12.0-15.5) Hematocrit 36.8 % (36.0-47.0) Mean Corpuscular Volume 91 fL (79-100) Mean Corpuscular Hemoglobin 30 pg (25-35) Mean Corpuscular Hemoglobin Concent 33 g/dL (31-37) Red Cell Distribution Width 14.4 % (11.5-14.5) Platelet Count 262 x10^3/uL (140-400) Neutrophils (%) (Auto) 63 % (31-73) Lymphocytes (%) (Auto) 27 % (24-48) Monocytes (%) (Auto) 6 % (0-9) Eosinophils (%) (Auto) 3 % (0-3) Basophils (%) (Auto) 1 % (0-3) Neutrophils # (Auto) 6.5 x10^3uL (1.8-7.7) Lymphocytes # (Auto) 2.7 x10^3/uL (1.0-4.8) Monocytes # (Auto) 0.6 x10^3/uL (0.0-1.1) Eosinophils # (Auto) 0.3 x10^3/uL (0.0-0.7) Basophils # (Auto) 0.1 x10^3/uL (0.0-0.2) D-Dimer (Alessandra) 1.09 mg/L (0.00-0.50) Sodium Level 138 mmol/L (136-145) Potassium Level 4.0 mmol/L (3.5-5.1) Chloride Level 107 mmol/L (98-107) Carbon Dioxide Level 19 mmol/L (21-32) Anion Gap 12 (6-14) Blood Urea Nitrogen 20 mg/dL (7-20) Creatinine 0.9 mg/dL (0.6-1.0) Estimated GFR (Cockcroft-Gault) 63.7 BUN/Creatinine Ratio 22 (6-20) Glucose Level 112 mg/dL (70-99) Calcium Level 8.7 mg/dL (8.5-10.1) Total Bilirubin 0.1 mg/dL (0.2-1.0) Aspartate Amino Transf (AST/SGOT) 18 U/L (15-37) Alanine Aminotransferase (ALT/SGPT) 23 U/L (14-59) Alkaline Phosphatase 109 U/L (46-116) Creatine Kinase 42 U/L (26-192) Troponin I Quantitative < 0.017 ng/mL (0-0.055) < 0.017 ng/mL (0-0.055) < 0.017 ng/mL (0-0.055) UA-Osu-I-Type Natriuretic Peptide 40 pg/mL (0-124) Total Protein 6.9 g/dL (6.4-8.2) Albumin 2.8 g/dL (3.4-5.0) Albumin/Globulin Ratio 0.7 (1.0-1.7) Lipase 67 U/L (73-393) Urine Collection Type Unknown Urine Color Yellow Urine Clarity Clear Urine pH 7.0 Urine Specific [place] 1.015 Urine Protein Neg (NEG-TRACE) Urine Glucose (UA) Neg mg/dL (NEG) Urine Ketones (Stick) Neg mg/dL (NEG) Urine Blood Neg (NEG) Urine Nitrite Neg (NEG) Urine Bilirubin Neg (NEG) Urine Urobilinogen Dipstick 0.2 mg/dL (0.2 mg/dL) Urine Leukocyte Esterase Neg (NEG) Urine RBC 0 /HPF (0-2) Urine WBC Rare /HPF (0-4) Urine Squamous Epithelial Cells Mod /LPF Urine Bacteria 0 /HPF (0-FEW) Test 12/16/17 05:47 White Blood Count 11.4 x10^3/uL (4.0-11.0) Red Blood Count 4.10 x10^6/uL (3.50-5.40) Hemoglobin 12.2 g/dL (12.0-15.5) Hematocrit 37.1 % (36.0-47.0) Mean Corpuscular Volume 91 fL (79-100) Mean Corpuscular Hemoglobin 30 pg (25-35) Mean Corpuscular Hemoglobin Concent 33 g/dL (31-37) Red Cell Distribution Width 14.0 % (11.5-14.5) Platelet Count 308 x10^3/uL (140-400) Neutrophils (%) (Auto) 65 % (31-73) Lymphocytes (%) (Auto) 29 % (24-48) Monocytes (%) (Auto) 5 % (0-9) Eosinophils (%) (Auto) 1 % (0-3) Basophils (%) (Auto) 0 % (0-3) Neutrophils # (Auto) 7.5 x10^3uL (1.8-7.7) Lymphocytes # (Auto) 3.3 x10^3/uL (1.0-4.8) Monocytes # (Auto) 0.6 x10^3/uL (0.0-1.1) Eosinophils # (Auto) 0.1 x10^3/uL (0.0-0.7) Basophils # (Auto) 0.0 x10^3/uL (0.0-0.2) Sodium Level 139 mmol/L (136-145) Potassium Level 3.8 mmol/L (3.5-5.1) Chloride Level 104 mmol/L (98-107) Carbon Dioxide Level 26 mmol/L (21-32) Anion Gap 9 (6-14) Blood Urea Nitrogen 15 mg/dL (7-20) Creatinine 0.9 mg/dL (0.6-1.0) Estimated GFR (Cockcroft-Gault) 63.7 BUN/Creatinine Ratio 17 (6-20) Glucose Level 123 mg/dL (70-99) Calcium Level 9.2 mg/dL (8.5-10.1) Magnesium Level 1.9 mg/dL (1.8-2.4) Total Bilirubin 0.1 mg/dL (0.2-1.0) Aspartate Amino Transf (AST/SGOT) 18 U/L (15-37) Alanine Aminotransferase (ALT/SGPT) 22 U/L (14-59) Alkaline Phosphatase 104 U/L (46-116) Total Protein 7.2 g/dL (6.4-8.2) Albumin 2.9 g/dL (3.4-5.0) Albumin/Globulin Ratio 0.7 (1.0-1.7) Brief Hospital Course Ms. Vazquez is a 62 old [sex] who presented with [ ] HISTORY OF PRESENT ILLNESS: This is a 62-year-old female who 2 nights ago noticed that her leg started hurting her with the left more than the right. Yesterday morning, she got up and noticed her left arm is so swollen that her knuckles hurt. She also noticed the left side of her body was enlarged and her veins are popping out. Her chest was hurting and she felt like she could not breathe. She has a significant family history of multiple people with blood clot also. She had taken a 2-hour car drive to [place] over the weekend. She states her brother noticed that she was quite fatigued. SHE WAS FOUND TO HAVE A LARGE DVT IN THE LUE, ETIOLOGY UNCLEAR. LOWERE EXTREMITIES A CT OF THE CHEST CLEAR OF THROMBUS. SHE WAS STARTED ON LOVONOX AND THEN ELIQUIS. SHE HAD AN UNEVENTFUL HOSPITAL STAY. SHE WAS NOT A CANDIDATE FOR LYSIS. I SPOKE WITH THE IR AND THEY RECOMMEND A WEEK ON ANTOCOAGULATION, THEN REEVALUATION WITH ULTRASOUND AND IF NO IMPROVEMENT MAY BE A CANDIDATE. ALL OF THIS WAS PUT ON THE DISCHARGE INSTRUCTIONS BY MYSELF. Discharge Information Condition at Discharge: Stable Disposition/Orders: D/C to Home Dischare Medications Current Medications Methylprednisolone Sodium Succinate (SOLU-Medrol 125MG VIAL) 125 mg 1X ONCE IV Last administered on 12/15/17at 01:00; Start 12/15/17 at 01:00; Stop 12/15/17 at 01:01; Status DC Albuterol/ Ipratropium (Duoneb) 3 ml 1X ONCE NEB Last administered on at 01:00; Start 12/15/17 at 01:00; Stop 12/15/17 at 01:01; Status DC Nitroglycerin (Nitro-Bid Oint) 1 inch 1X ONCE TP Last administered on at 01:00; Start 12/15/17 at 01:00; Stop 12/15/17 at 01:01; Status DC Lorazepam (Ativan) 1 mg 1X ONCE IV ; Start 12/15/17 at 03:00; Stop 12/15/17 at 04 :22; Status DC Acetaminophen/ Hydrocodone Bitart (Lortab 7.5/325) 1 tab 1X ONCE PO Last administered on 12/15/17at 04:55; Start 12/15/17 at 04:30; Stop 12/15/17 at 04:31; Status DC Ondansetron HCl (Zofran Odt) 8 mg 1X ONCE PO Last administered on 12/15/17at 05: 00; Start 12/15/17 at 04:30; Stop 12/15/17 at 04:31; Status DC Iohexol (Omnipaque 300 Mg/ml) 75 ml 1X ONCE IV Last administered on 12/15/17at 14:07; Start 12/15/17 at 04:30; Stop 12/15/17 at 04:31; Status DC Info (Do NOT chart on this entry -- for MONITORING) 1 each PRN DAILY PRN MC SEE COMMENTS; Start 12/15/17 at 04:15; Stop 12/16/17 at 12:02; Status DC Enoxaparin Sodium (Lovenox 120mg Syringe) 120 mg Q12HR SQ Last administered on 12/15/17at 20:37; Start 12/15/17 at 21:00; Stop 12/16/17 at 06:48; Status DC Enoxaparin Sodium (Lovenox 120mg Syringe) 120 mg 1X ONCE SQ Last administered on 12/15/17at 04:55; Start 12/15/17 at 05:00; Stop 12/15/17 at 05:02; Status DC Info (Anti-Coagulation Monitoring By Pharmacy) 1 each PRN DAILY PRN MC SEE COMMENTS; Start 12/15/17 at 04:45; Status Cancel Ondansetron HCl (Zofran) 4 mg PRN Q4HRS PRN IV NAUSEA/VOMITING; Start 12/15/17 at 05:00; Stop 12/16/17 at 04:59; Status DC Acetaminophen (Tylenol) 650 mg PRN Q4HRS PRN PO FEVER; Start 12/15/17 at 05:00; Stop 12/16/17 at 04:59; Status DC Nitroglycerin (Nitrostat) 0.4 mg PRN Q5MIN PRN SL CHEST PAIN; Start 12/15/17 at 05:00; Stop 12/16/17 at 04:59; Status DC Albuterol/ Ipratropium (Duoneb) 3 ml RTQID NEB ; Start 12/15/17 at 08:00; Stop at 10:39; Status DC Acetaminophen/ Hydrocodone Bitart (Lortab 5/325) 1 tab PRN Q4HRS PRN PO SEVERE PAIN Last administered on 12/15/17at 15:52; Start 12/15/17 at 05:00; Stop 12/16/17 at 12:02; Status DC Pneumococcal Polyvalent Vaccine (Do NOT chart on this entry -- for MONITORING) 1 each 1X ONCE MC ; Start 12/15/17 at 07:30; Stop 12/15/17 at 07:31; Status UNV Pneumococcal Polyvalent Vaccine (Pneumovax 23) 0.5 ml ONCE ONCE VAX IM Last administered on 12/16/17at 09:06; Start 12/15/17 at 09:00; Stop 12/15/17 at 09:01; Status DC Albuterol Sulfate (Ventolin) 2.5 mg Q2HR PRN NEB SHORTNESS OF BREATH; Start 12/15/17 at 08:45; Stop 12/15/17 at 16:14; Status DC Albuterol Sulfate (Ventolin Hfa) 2 puff Q6HRS PRN INH SHORTNESS OF BREATH; Start 12/15/17 at 16:00; Stop 12/15/17 at 16:14; Status DC Alprazolam (Xanax) 0.5 mg PRN BID PRN PO ANXIETY / AGITATION; Start 12/15/17 at 16:00; Stop 12/16/17 at 12:02; Status DC Bumetanide (Bumex) 0.5 mg DAILY PO Last administered on 12/16/17at 09:01; Start 12/15/17 at 16:00; Stop 12/16/17 at 12:02; Status DC Bupropion HCl (Wellbutrin Sr) 100 mg DAILY PO Last administered on 12/16/17at 09: 03; Start 12/15/17 at 16:00; Stop 12/16/17 at 12:02; Status DC Vitamin D (Vitamin D3) 1,000 unit DAILY PO Last administered on 12/16/17at 09:01 ; Start 12/15/17 at 16:00; Stop 12/16/17 at 12:02; Status DC Diclofenac Sodium (Voltaren) 75 mg DAILY PO Last administered on 12/16/17at 09:04 ; Start 12/15/17 at 16:00; Stop 12/16/17 at 12:02; Status DC Duloxetine HCl (Cymbalta) 90 mg DAILY PO Last administered on 12/16/17at 09:02; Start 12/15/17 at 16:00; Stop 12/16/17 at 12:02; Status DC Lamotrigine (LaMICtal) 150 mg DAILY PO Last administered on 12/16/17at 09:04; Start 12/15/17 at 16:00; Stop 12/16/17 at 12:02; Status DC Levothyroxine Sodium (Synthroid) 125 mcg DAILY06 PO Last administered on at 05:37; Start 12/15/17 at 16:00; Stop 12/16/17 at 12:02; Status DC Sucralfate (Carafate) 1 gm QID PO Last administered on 12/16/17at 11:18; Start at 17:00; Stop 12/16/17 at 12:02; Status DC Topiramate (Topamax) 100 mg BID PO Last administered on 12/16/17 09:03; Start 12/15/17 at 21:00; Stop 12/16/17 at 12:02; Status DC Ziprasidone (Geodon) 80 mg BID PO Last administered on 12/16/17 09:04; Start at 21:00; Stop 12/16/17 at 12:02; Status DC Budesonide (Pulmicort) 0.5 mg RTBID NEB Last administered on 12/15/17 21:31; Start 12/15/17 at 20:00; Stop 12/16/17 at 12:02; Status DC Zolpidem Tartrate (Ambien) 5 mg PRN QHS PRN PO INSOMNIA, REPEAT X1 WITHIN 2HR Last administered on 12/15/17 20:38; Start 12/15/17 at 21:00; Stop 12/16/17 at 12: 02; Status DC Meclizine HCl (Antivert) 25 mg PRN TID PRN PO DIZZINESS; Start 12/15/17 at 16:15 ; Stop 12/16/17 at 12:02; Status DC Prenat Multivit/ [place]/Iron/Folic Ac (Multivitamin ) 1 tab DAILY PO Last administered on 12/16/17 09:03; Start 12/15/17 at 16:00; Stop 12/16/17 at 12: 02; Status DC Pantoprazole Sodium (Protonix) 40 mg DAILYAC PO Last administered on 12/16/17 09:00; Start 12/15/17 at 16:00; Stop 12/16/17 at 12:02; Status DC Lisinopril (Prinivil) 20 mg DAILY PO Last administered on 12/16/17 09:03; Start 12/15/17 at 16:00; Stop 12/16/17 at 12:02; Status DC Atorvastatin Calcium (Lipitor) 40 mg QHS PO Last administered on 12/15/17 20:38 ; Start 12/15/17 at 21:00; Stop 12/16/17 at 12:02; Status DC Albuterol Sulfate (Ventolin) 2.5 mg PRN Q6HRS PRN NEB SHORTNESS OF BREATH; Start 12/15/17 at 16:15; Stop 12/16/17 at 12:02; Status DC Albuterol Sulfate (Ventolin) 2.5 mg RTQID NEB ; Start 12/15/17 at 20:00; Stop 12/16/17 at 12:02; Status DC Budesonide (Pulmicort) 0.5 mg RTBID NEB ; Start 12/15/17 at 20:00; Status UNV Apixaban (Eliquis) 10 mg BID PO Last administered on 12/16/17at 09:03; Start 12/16 at 09:00; Stop 12/16/17 at 12:02; Status DC Active Scripts Active Eliquis (Apixaban) 5 Mg Tablet 5 Mg PO BID Take 10mg twice a day for 7 days, then decrease to 5mg twice a day Reported Geodon (Ziprasidone Hcl) 80 Mg Capsule 80 Mg PO BID LAST DOSE GIVEN: DATE: TODAY TIME: AM NEXT DOSE DUE: DATE: TODAY TIME: PM Topiramate 100 Mg Tablet 100 Mg PO BID LAST DOSE GIVEN: DATE: TIME: AM NEXT DOSE DUE: DATE: TODAY TIME: PM Symbicort 160-4.5 Mcg Inhaler (Budesonide/Formoterol Fumarate) 10.2 Gm Hfa.aer.ad 2 Puff IH BID LAST DOSE GIVEN: DATE: YESTERDAY TIME: AT BEDTIME NEXT DOSE DUE: DATE: TIME: AT BEDTIME Sucralfate 1 Gm Tablet 1 Gm PO QID LAST DOSE GIVEN: DATE: TIME: AM NEXT DOSE DUE: DATE: TIME: AFTERNOON Crestor (Rosuvastatin Calcium) 10 Mg Tablet 10 Mg PO DAILY LAST DOSE GIVEN: DATE: YESTER TIME: AT BEDTIME NEXT DOSE DUE: DATE: TIME: AT BEDTIME Ramipril 10 Mg Capsule 10 Mg PO DAILY LAST DOSE GIVEN: DATE: TODAY TIME: AM NEXT DOSE DUE: DATE: TOMORROW TIME: AM Proair Hfa Inhaler (Albuterol Sulfate) 8.5 Gm Hfa.aer.ad 2 Puff INH PRN Q4-6HRS PRN LAST DOSE GIVEN: NOT GIVEN THIS ADMISSION NEXT DOSE DUE: DATE: TODAY TIME: IF/WHEN NEEDED Omeprazole 40 Mg Capsule.dr 40 Mg PO DAILYAC LAST DOSE GIVEN: DATE: TIME: AM NEXT DOSE DUE: DATE: TOMORROW TIME: AM Maxalt (Rizatriptan Benzoate) 10 Mg Tablet 10 Mg PO LAST DOSE GIVEN: NOT GIVEN THIS ADMISSION NEXT DOSE DUE: DATE: TODAY TIME: PER HOME SCHEDULE Meclizine Hcl 25 Mg Tablet 25 Mg PO PRN TID PRN LAST DOSE GIVEN: NOT GIVEN THIS ADMISSION NEXT DOSE DUE: DATE: TODAY TIME: IF/WHEN NEEDED Lunesta (Eszopiclone) 3 Mg Tablet 2 Mg PO QHS LAST DOSE GIVEN: DATE: YESTER TIME: AT BEDTIME NEXT DOSE DUE: DATE: TIME: AT BEDTIME Levothyroxine Sodium 125 Mcg Tablet 125 Mcg PO DAILY06 LAST DOSE GIVEN: DATE: TODAY TIME: AM NEXT DOSE DUE: DATE: TOMORROW TIME: AM Lamotrigine 150 Mg Tablet 150 Mg PO DAILY LAST DOSE GIVEN: DATE: TIME: AM NEXT DOSE DUE: DATE: TOMORR TIME: AM Cymbalta (Duloxetine Hcl) 30 Mg Capsule.dr 90 Mg PO DAILY LAST DOSE GIVEN: DATE: TIME: AM NEXT DOSE DUE: DATE: TOMORR TIME: AM Diclofenac Sodium 75 Mg Tablet.dr 75 Mg PO DAILY LAST DOSE GIVEN: DATE: TIME: AM NEXT DOSE DUE: DATE: ORR TIME: AM Vitamin D3 (Cholecalciferol (Vitamin D3)) 1,000 Unit Tablet 1,000 Unit PO DAILY LAST DOSE GIVEN: DATE: TIME: AM NEXT DOSE DUE: DATE: ORR TIME: AM Centrum Multigummies (Multivit-Minerals/Folic Acid) 80 Mcg Tab.chew 80 Mcg PO DAILY LAST DOSE GIVEN: DATE: TIME: AM NEXT DOSE DUE: DATE: ORR TIME: AM Bupropion Hcl Sr (Bupropion Hcl) 100 Mg Tablet.er 100 Mg PO DAILY LAST DOSE GIVEN: DATE: TODAY TIME: AM NEXT DOSE DUE: DATE: TOMORROW TIME: AM Bumetanide 1 Mg Tablet 0.5 Mg PO DAILY LAST DOSE GIVEN: DATE: TODAY TIME: AM NEXT DOSE DUE: DATE: ORR TIME: AM Alprazolam 0.5 Mg Tablet 0.5 Mg PO BID PRN LAST DOSE GIVEN: NOT GIVEN THIS ADMISSION NEXT DOSE DUE: DATE: TODAY TIME: IF/WHEN NEEDED Patient Instructions Patient Instuctions DETAILED WRITTEN INSTRUCTIONS ON EMAR FOR PATIENT. KIARRA VASQUEZ DO Dec 16, 2017 13:39
== END 2017-12-16 11:25 | disposition home or self-care (01) | DRG 300 ==
LOC: ER 23:40 → 1 SOUTH 12-15 05:00
PROVIDERS: ADMIT Family Medicine; ATTEND Family Medicine
DX: I82.A12 Acute embolism and thrombosis of left axillary vein (principal); E44.0 Moderate protein-calorie malnutrition; D68.9 Coagulation defect, unspecified; E66.01 Morbid (severe) obesity due to excess calories; Z68.41 Body mass index [BMI] 40.0-44.9, adult; I82.622 Acute embolism and thrombosis of deep veins of left upper extremity; G89.29 Other chronic pain; E03.9 Hypothyroidism, unspecified; E11.9 Type 2 diabetes mellitus without complications; E78.5 Hyperlipidemia, unspecified; F41.9 Anxiety disorder, unspecified; H81.09 Meniere's disease, unspecified ear; K21.9 Gastro-esophageal reflux disease without esophagitis; I10 Essential (primary) hypertension; G47.30 Sleep apnea, unspecified; F32.9 Major depressive disorder, single episode, unspecified; N63.0 Unspecified lump in unspecified breast; G43.909 Migraine, unspecified, not intractable, without status migrainosus; J45.909 Unspecified asthma, uncomplicated; Z23 Encounter for immunization; Z88.8 Allergy status to other drugs, medicaments and biological substances; Z79.899 Other long term (current) drug therapy; Z83.2 Family history of diseases of the blood and blood-forming organs and certain disorders involving the immune mechanism; Z85.3 Personal history of malignant neoplasm of breast; Z90.11 Acquired absence of right breast and nipple; Z82.49 Family history of ischemic heart disease and other diseases of the circulatory system; Z80.9 Family history of malignant neoplasm, unspecified; Z79.01 Long term (current) use of anticoagulants; Z90.710 Acquired absence of both cervix and uterus; Z90.49 Acquired absence of other specified parts of digestive tract; R07.89 Other chest pain
CPT/HCPCS: 36415; 71045; 71260; 78582; 80053; 81001; 82550; 83690; 83735; 83880; 84484; 85025; 85379; 90732; 93005; 93306; 93971; 94640; 96372; 96374; A9540; A9558; J1650; J2930; J7620; J7626; Q0162; Q9967; 99285-25

== ENCOUNTER 2019-08-16 06:37 | Inpatient (IN) | payer OTHER ==
[~2019-08-16] VITALS: Ht 167.6 cm; Wt 109.9 kg
[~2019-08-16 06:37] MED LIST: ALBU2.5V8 INH; ALPR0.5T6 PO; APIX5TAB3 PO; BUDE10.2 IH; BUME1TAB3 PO; BUPR100T8 PO; CHOL10003 PO; CRESTOR10 MG PO; DICL75TA PO; DULO30CA2 PO; ESZO3TAB28 PO; LAMO150T4 PO; LEVO125T5 PO; MECL25TA3 PO; MULT80TA PO; OMEP40CA45 PO; RAMI10CA53 PO; RIZA10TA PO; SUCR1TAB PO; TOPI100T8 PO; ZIPR80CA2 PO
[2019-08-16 07:32] LABS: BASO % 0 % (0-3); EOS # 0.1 x10^3/uL (0.0-0.7); EOS % 1 % (0-3); HEMATOCRIT 40.9 % (36.0-47.0); LYMPH # 1.1 x10^3/uL (1.0-4.8); LYMPH % 10 % (24-48); MEAN CORPUSCULAR HEMOGLOBIN 28 pg (25-35); MEAN CORPUSCULAR HGB CONC 32 g/dL (31-37); MEAN CORPUSCULAR VOLUME 88 fL (79-100); MONO # 0.3 x10^3/uL (0.0-1.1); MONO % 3 % (0-9); NEUT # 9.7 x10^3uL (1.8-7.7); NEUT % 87 % (31-73); PLATELET COUNT 406 x10^3/uL (140-400); RED BLOOD COUNT 4.65 x10^6/uL (3.50-5.40); RED CELL DISTRIBUTION WIDTH 15.5 % (11.5-14.5); WHITE BLOOD COUNT 11.2 x10^3/uL (4.0-11.0)
--- NOTE | 2019-08-16 07:35 | PHYS DOC ---
Past History Past Medical History: Anxiety, Asthma, Depression, Diabetes, GERD, High Cholesterol, Hypertension, Migraines, Other Past Surgical History: No Surgical History Alcohol Use: None Drug Use: None Adult General Chief Complaint Chief Complaint: fever HPI HPI 64-year-old female presents with fever and neck pain. The patient tells me that she has had intermittent neck pain with muscle spasms for the last 2-3 days. She just assumed that she was sleeping wrong. The patient woke up early this morning with shaking chills and pain at the base of her neck radiating to her shoulders. She does not have decreased range of motion. She feels like she is having muscle spasms occasionally in this area. She had a fever greater than 101 and took 2 Tylenol. Her temperature on arrival is 100. She denies shortness of breath or chest pain. Denies dysuria or increased urinary frequency. She does have intermittent cough, which she has a history of asthma also she doesn't believe she has been coughing more than usual. Review of Systems Review of Systems Constitutional: Denies fever or chills [] Eyes: Denies change in visual acuity, redness, or eye pain [] HENT: Denies nasal congestion or sore throat. Neck pain. [] Respiratory: Cough without shortness of breath [] Cardiovascular: No additional information not addressed in HPI [] GI: Denies abdominal pain, nausea, vomiting, bloody stools or diarrhea [] : Denies dysuria or hematuria [] Musculoskeletal: right shoulder pain [] Integument: Denies rash or skin lesions [] Neurologic: Denies headache, focal weakness or sensory changes [] Endocrine: Denies polyuria or polydipsia [] All other systems were reviewed and found to be within normal limits, except as documented in this note. Allergies Allergies Allergies Coded Allergies Type Severity Reaction Last Updated Verified metoclopramide Allergy Intermediate 12/15/17 Yes prochlorperazine Allergy Intermediate 12/15/17 Yes promethazine Allergy Intermediate 12/15/17 Yes theophylline Allergy Intermediate 12/15/17 Yes Physical Exam Physical Exam Constitutional: Well developed, morbidly obese, well nourished, no acute distress, non-toxic appearance. [] HENT: Normocephalic, atraumatic, bilateral external ears normal, oropharynx moist, no oral exudates, nose normal. [] Eyes: PERRLA, EOMI, conjunctiva normal, no discharge. [] Neck: Normal range of motion, no tenderness, supple, no stridor. No nuchal rigidity or cogwheel motion. Bilateral trapezius muscle tightness. [] Cardiovascular:Heart rate 143, regular rhythm, no murmur [] Lungs & Thorax: Bilateral breath sounds clear to auscultation [] Abdomen: Bowel sounds normal, soft, no tenderness, no masses, no pulsatile masses. [] Skin: Warm, dry, no erythema, no rash. [] Back: No tenderness, no CVA tenderness. [] Extremities: No tenderness, no cyanosis, no clubbing, ROM intact, no edema. [] Neurologic: Alert and oriented X 3, normal motor function, normal sensory function, no focal deficits noted. [] Psychologic: Affect normal, judgement normal, mood normal. [] EKG EKG Sinus tachycardia, rate 132, normal axis, no ST elevation or depression[] Radiology/Procedures Radiology/Procedures [] Impressions: EXAM: CHEST ONE VIEW. HISTORY: Fever, weakness. COMPARISON: 12/15/2017. FINDINGS: A frontal view of the chest is obtained. The central pulmonary vasculature are prominent. Trace pleural effusions are suspected. There is no pneumothorax or pleural effusion. The heart is not enlarged. There are surgical clips in the right axilla. Spinal stimulator electrodes are noted. IMPRESSION: 1. Correlate for mild volume overload. Electronically signed by: Zackery Fink MD (08/16/2019 7:55 AM) [facility] DICTATED AND SIGNED BY: ROSE MARY FINK MD DATE: 08/16/19 0755 CC: LOY GREEN DO; NICOLLE REED DO ~ Examination: CT angiography chest HISTORY: History of shortness of breath, weakness COMPARISON: CT chest from 12/15/2017 TECHNIQUE: Axial CT angiographic images of chest were performed with IV contrast. Coronal and sagittal 3-D MIP reformats are performed. Exposure: One or more of the following individualized dose reduction techniques were utilized for this examination: 1. Automated exposure control 2. Adjustment of the mA and/or kV according to patient size 3. Use of iterative reconstruction technique FINDINGS: The visualized thyroid grossly appears unremarkable. The central airways are patent. The heart size grossly appears unremarkable. The caliber of the aorta grossly appears unremarkable. No evidence of filling defect identified in the main pulmonary arterial trunk and right and left main pulmonary arteries. The evaluation of distal most branch of the pulmonary arteries is somewhat limited. Multiple patchy airspace opacities identified in the bibasilar lungs and in the right middle lobe of the lung and in the left lingula likely pneumonia or atelectasis. The the liver, spleen, adrenals grossly appears unremarkable. Surgical changes identified in the stomach. Mild prominent appearing partially visualized left renal cortex. Mild degenerative changes thoracic spine. IMPRESSION: 1. No evidence of central pulmonary embolism. 2. Patchy bibasilar lung airspace opacities and airspace opacities identified in the right middle lobe and left lingular likely pneumonia or atelectasis. Follow-up to resolution. 3. Mild prominent appearing left renal cortex partially visualized. Recommend ultrasound kidneys to exclude mass. Electronically signed by: Brooks Humphrey MD (08/16/2019 8:58 AM) [id number] DICTATED AND SIGNED BY: BROOKS HUMPHREY MD DATE: 08/16/19 0858 CC: LOY GREEN DO; NICOLLE REED DO ~ Course & Med Decision Making Course & Med Decision Making Pertinent Labs and Imaging studies reviewed. (See chart for details) The patient's chest x-ray shows trace pleural effusions and vascular prominence. Mild volume overload is possible. The patient's CBC is unremarkable. Given the patient's tachycardia and history of DVTs in the past, I am going to CT angiogram of the chest. She is on Eliquis because of her history of clots. The patient's CTA is negative for pulmonary embolism. It is suggestive of possible infiltrate. I will do blood cultures and lactic acid. We'll give the patient Zosyn and admit her to the hospital. Spoke with Dr. Duncan and he has accepted the patient for admission. The patient is in agreement with this plan. [] Dragon Disclaimer Dragon Disclaimer This electronic medical record was generated, in whole or in part, using a voice recognition dictation system. Departure Departure: Impression: Primary Impression: Pneumonia Disposition: ADMITTED INPATIENT Admitting Physician: Oral Duncan Condition: STABLE Referrals: LOY GREEN DO (PCP) Problem Qualifiers Primary Impression: Pneumonia Pneumonia type: due to unspecified organism Laterality: bilateral Lung location: unspecified part of lung Qualified Codes: J18.9 - Pneumonia, unspecified organism NICOLLE REED DO Aug 16, 2019 07:35
--- NOTE | 2019-08-16 07:57 | RAD ---
EXAM: CHEST ONE VIEW. HISTORY: Fever, weakness. COMPARISON: 12/15/2017. FINDINGS: A frontal view of the chest is obtained. The central pulmonary vasculature are prominent. Trace pleural effusions are suspected. There is no pneumothorax or pleural effusion. The heart is not enlarged. There are surgical clips in the right axilla. Spinal stimulator electrodes are noted. IMPRESSION: 1. Correlate for mild volume overload. Electronically signed by: Zackery Fink MD (08/16/2019 7:55 AM) [facility]
[2019-08-16 07:58] LABS: ALBUMIN 3.3 g/dL (3.4-5.0); ALBUMIN/GLOBULIN RATIO 0.8 (1.0-1.7); CREATININE 1.2 mg/dL (0.6-1.0); GFR 45.4; MAGNESIUM 1.5 mg/dL (1.8-2.4); POTASSIUM 4.4 mmol/L (3.5-5.1); TOTAL BILIRUBIN 0.3 mg/dL (0.2-1.0); TOTAL PROTEIN 7.4 g/dL (6.4-8.2)
[2019-08-16] MEDS ORDERED: IV NORMAL SALINE 1,000ML 1,000 ML IV ONE (08:00)
[2019-08-16 08:07] LABS: INFLUENZA A PATIENT NEGATIVE (NEGATIVE); INFLUENZA B PATIENT NEGATIVE (NEGATIVE)
[2019-08-16] MEDS ORDERED: IOHEXOL 350 MG/ML 100 ML VIAL. IV ONE (08:30)
--- NOTE | 2019-08-16 09:01 | RAD ---
Examination: CT angiography chest HISTORY: History of shortness of breath, weakness COMPARISON: CT chest from 12/15/2017 TECHNIQUE: Axial CT angiographic images of chest were performed with IV contrast. Coronal and sagittal 3-D MIP reformats are performed. Exposure: One or more of the following individualized dose reduction techniques were utilized for this examination: 1. Automated exposure control 2. Adjustment of the mA and/or kV according to patient size 3. Use of iterative reconstruction technique FINDINGS: The visualized thyroid grossly appears unremarkable. The central airways are patent. The heart size grossly appears unremarkable. The caliber of the aorta grossly appears unremarkable. No evidence of filling defect identified in the main pulmonary arterial trunk and right and left main pulmonary arteries. The evaluation of distal most branch of the pulmonary arteries is somewhat limited. Multiple patchy airspace opacities identified in the bibasilar lungs and in the right middle lobe of the lung and in the left lingula likely pneumonia or atelectasis. The the liver, spleen, adrenals grossly appears unremarkable. Surgical changes identified in the stomach. Mild prominent appearing partially visualized left renal cortex. Mild degenerative changes thoracic spine. IMPRESSION: 1. No evidence of central pulmonary embolism. 2. Patchy bibasilar lung airspace opacities and airspace opacities identified in the right middle lobe and left lingular likely pneumonia or atelectasis. Follow-up to resolution. 3. Mild prominent appearing left renal cortex partially visualized. Recommend ultrasound kidneys to exclude mass. Electronically signed by: Brooks Humphrey MD (08/16/2019 8:58 AM) [id number]
[2019-08-16] MEDS ORDERED: PIPERACILLIN/TAZOBACTAM 3.375 GM in IV NORMAL SALINE 50ML 50 ML IV ONE (10:00)
[2019-08-16] MEDS ORDERED: PIPERACILLIN/TAZOBACTAM 3.375 GM VIAL IV ONE (10:02)
[2019-08-16] MEDS ORDERED: IV NORMAL SALINE 50ML 50 ML ONE (10:02)
[2019-08-16 11:40] VITALS: BP 114/74
[2019-08-16] MEDS ORDERED: MONT10TA80 PO (12:03)
[2019-08-16] MEDS ORDERED: PRAV20TA2 PO (12:03)
[2019-08-16] MEDS ORDERED: NITR0.4T22 SL (12:03)
[2019-08-16] MEDS ORDERED: ASPI81TA50 PO (12:03)
[2019-08-16] MEDS ORDERED: APIX2.5T PO (12:03)
[2019-08-16] MEDS ORDERED: AMLO2.5T2 PO (12:03)
[2019-08-16] MEDS ORDERED: TIOT18CA IH (12:03)
[2019-08-16] MEDS ORDERED: RANI-376 PO (12:06)
--- NOTE | 2019-08-16 12:16 | NUR ---
The patient, FARIDEH LOVELL, 64 y/o, F admitted by YVAN MIDDLETON MD, was given written information regarding hospital policies, unit procedures and contact persons. Valuables were checked and left with patiet at bedside. Patient is a full code, alert and oriented x 4, speech is clear, able to make wants and needs known and able to verbalize understanding of others. Uses walker and stand by assistance for ambulation. Admitted from ED with a diagnosis of pneumonia. Dr. Middleton was notified via telephone of patient admission. New orders received. Patient is receiving IV antibiotics and PO antibiotics for treatment of pneumonia, will continue to monitor. Patient is on Room Air, 92% o2, respirations are even and unlabored, non productive cough present, SOA with exertion.
[2019-08-16 12:29] LABS: BILIRUBIN,URINE NEG (NEG); CLARITY,URINE CLOUDY; COLOR,URINE YELLOW; GLUCOSE,URINE NEG (NEG)
[2019-08-16 12:30] LABS: BACTERIA,URINE MOD /HPF (0-FEW); NITRITE,URINE NEG (NEG); SQUAMOUS EPITHELIAL CELL,UR MANY /LPF; UROBILINOGEN,URINE 0.2 mg/dL (0.2 mg/dL); YEAST,URINE PRESENT /HPF
[2019-08-16] MEDS ORDERED: AZITHROMYCIN 250 MG TABLET. PO ONE (13:00)
[2019-08-16] MEDS ORDERED: FLU VAX QS 2019-20 (36MOS+)/PF 0.5 ML SYRINGE. VAX IM ONE (13:00)
--- NOTE | 2019-08-16 13:01 | EKG ---
[address] [address] Test Date: 2019-08-16 Test Time: 07:56:35 Pat Name: FARIDEH LOVELL Department: Room: Gender: F Tie Carrier: PINO : [id number] Requested By: NICOLLE REED Order Number: [id number] Reading MD: Measurements Intervals [place] Rate: 132 P: 67 HI: 148 QRS: 28 QRSD: 72 T: 39 QT: 282 QTc: 421 Interpretive Statements SINUS TACHYCARDIA R-S TRANSITION ZONE IN V LEADS DISPLACED TO THE LEFT LOW LIMB LEAD VOLTAGE NO SPECIFIC ECG ABNORMALITIES RI6.01 No previous ECG available for comparison
[2019-08-16] MEDS ORDERED: ALBUTEROL SULFATE 2.5 MG/3 ML NEBU. INH PRN (14:15)
[2019-08-16] MEDS ORDERED: MECLIZINE 12.5 MG TABLET. PO PRN (14:45)
[2019-08-16] MEDS ORDERED: NITROGLYCERIN SUBLINGUAL 0.4 MG BOTTLE OF 25. SL PRN (14:45)
[2019-08-16 14:48] VITALS: BP 113/70
--- NOTE | 2019-08-16 14:50 | HP ---
ADMIT DATE: 08/16/2019 HISTORY OF PRESENT ILLNESS: The patient is a 64-year-old female patient who presented to the Emergency Room complaining of fever and neck pain and marked muscle spasm for the last 2-3 days. She has just assumed that she was sleeping wrong way. The patient woke up early this morning with shaking chills and pain at the base of her neck radiating to her shoulders. She does not have decreased range of motion. She feels like she is having muscle spasms occasionally in this area. She had a fever greater than 101 and took 2 Tylenol. Her temperature on arrival was 100. She denied any shortness of breath or chest pain. Denied any dysuria, frequency or hematuria. Does have intermittent cough, which is mostly dry. She was extensively evaluated in the Emergency Room, she was found to have mild leukocytosis with a white cell count of 11,200. Her chemistry showed that her BUN and creatinine are slightly elevated. She has hypomagnesemia. Today her urinalysis was unremarkable. Her influenza A and B were negative. Her chest x-ray showed that she has central pulmonary vasculature that is prominent with trace pleural effusion suspected. There is no pneumothorax or pleural effusion. The heart is not enlarged. There are surgical clips in the right axilla. Spinal stimulator electrodes are noted. Therefore, she has had CT angio of the chest, showed that there is no evidence of central pulmonary embolism; however, she has patchy bibasilar lung airspace opacities with airspace opacities identified in the right middle lobe and left lingular likely pneumonia. Has also mildly prominent appearing left renal cortex partially visualized and the radiologist recommended ultrasound of the kidneys to exclude a mass. The patient was admitted with community-acquired pneumonia, was started on Zithromax and Zosyn. PAST MEDICAL HISTORY: Significant for bronchial asthma, hypertension, hyperlipidemia, hypothyroidism, generalized osteoarthritis, morbid obesity, obstructive sleep apnea on CPAP and she has also chronic kidney disease. PAST SURGICAL HISTORY: Significant for left total knee arthroplasty, spinal stimulator placement and has had cochlear implant in the left ear, breast cancer, status post right mastectomy and 3 lumpectomies in the left side, cholecystectomy, total abdominal hysterectomy, bilateral salpingo-oophorectomy, left shoulder surgery, esophagogastroduodenoscopy and colonoscopy. ALLERGIES: SHE IS ALLERGIC TO REGLAN, COMPAZINE, PROMETHAZINE AND THEOPHYLLINE. MEDICATIONS: She is currently on following medications: She is on Spiriva HandiHaler 1 inhalation once a day, albuterol sulfate for ProAir 2 puffs every 4-6 hours. She is on apixaban 2.5 mg twice a day, pravastatin sodium 20 mg once a day, nitroglycerin 0.4 mg sublingually every 5 minutes x 3, amlodipine 2.5 mg once a day, ramipril 10 mg once a day, aspirin 81 mg once a day, and topiramate 100 mg twice a day, Wellbutrin 100 mg daily. She is also on ziprasidone for Geodon 80 mg twice a day, bumetanide half a mg once a day and montelukast 10 mg at bedtime, omeprazole 40 mg once a day, Synthroid or levothyroxine sodium 125 mcg once a day. She is on cholecalciferol, vitamin D3 1000 international unit once a day. REVIEW OF SYSTEMS: The patient denies any blurring of vision, cataract, glaucoma or macular degeneration. Denied any earache, tinnitus. She has a cochlear implant on the left side. Denied any nosebleeds, stuffy nose or postnasal drip. Denied any sore throat, sore tongue, toothache, hoarseness of voice or difficulty swallowing. Denied any nausea, vomiting, diarrhea or constipation. Denied any hematemesis, melena or hematochezia. Denied any dysuria, frequency or hematuria. Did complain of chest pain, shortness of breath. Cough is mostly dry. Did have chills, rigors and fever. PHYSICAL EXAMINATION: GENERAL: On arrival to the Emergency Room, the patient looked somewhat tachypneic, but no pallor, jaundice, cyanosis or thyromegaly. No jugular venous distention or limb edema. VITAL SIGNS: Her heart rate was 144, blood pressure was 121/73, temperature was 100, respiratory rate 20, and oxygen saturation was 94%. HEAD, EYES, EARS, NOSE AND THROAT: Showed normocephalic, atraumatic. NECK: Supple. HEART: Showed normal first and second heart sounds. No gallop or murmur. CHEST: Clear to auscultation. No crepitation or rhonchi. Central trachea, equal bilateral expansion, air entry, vesicular sounds with crepitation posteriorly bilaterally. I could not appreciate any rhonchi. ABDOMEN: Distended, soft, nontender. NEUROLOGIC: She is awake, alert, responding appropriately. All cranial nerves intact. EXTREMITIES: She moves extremities without difficulty. She normally ambulates with a cane. LABORATORY DATA: White cell count was 11,200, hemoglobin 13, hematocrit 40, MCV 88 and platelet count of 406,0000. Her serum sodium was 141, potassium 4.4, chloride 105, bicarbonate 20, anion gap of 16, BUN 26, creatinine 1.2, estimated GFR was 45 mL per minute. Her glucose 157. Lactic acid was 1.5, calcium was 9, magnesium was 1.5. Total bilirubin, AST, ALT were normal. Alkaline phosphatase slightly elevated. Her total protein was 7.4, albumin was 3.3. Her urinalysis showed the urine was yellow, cloudy with a pH of 5.5, specific gravity of less than 1.005. The urine was negative for protein, glucose, ketones, blood, nitrite and leukocyte esterase. There are 1-2 rbc's, 1-4 wbc's, and moderate amount of bacteria. Her influenza A and B were negative and a CT scan of the chest showed that the patient has patchy bibasilar lung airspace opacities and air space opacities identified in the right middle lobe and left lingula, likely pneumonia. ASSESSMENT AND PLAN: The patient was admitted. She was started on Zosyn and Zithromax. We will resume all her medication and repeat all her lab works tomorrow. Continue to monitor her oxygen and according to the result of her lab work and culture. DICTATION ENDS HERE YVAN MIDDLETON MD DR: PORTER/sky JOB#: [id number] / [id number]
[2019-08-16] MEDS: IPRATRPIUM/ALBUTEROL 0.5/2.5MG 3 ML NEBU. NEB SCH ×2 (16:12→21:53)
[2019-08-16 19:33] VITALS: BP 110/70
[2019-08-16] MEDS: APIXABAN 2.5 MG TABLET PO SCH (20:51)
[2019-08-16] MEDS: ZIPRASIDONE 80 MG CAPSULE. PO SCH (20:51)
[2019-08-16] MEDS: TOPIRAMATE 100 MG TABLET. PO SCH (20:51)
[2019-08-16] MEDS: MONTELUKAST 10 MG TABLET. PO SCH (20:51)
[2019-08-16] MEDS: FAMOTIDINE 20 MG TABLET PO SCH (20:51)
[2019-08-16 23:29] VITALS: BP 109/71
[2019-08-17 05:13] VITALS: BP 118/71
[2019-08-17] MEDS: LEVOTHYROXINE 125 MCG TABLET PO SCH (05:18)
[2019-08-17] MEDS: IPRATRPIUM/ALBUTEROL 0.5/2.5MG 3 ML NEBU. NEB SCH ×4 (05:27→20:35)
[2019-08-17 06:31] LABS: HEMATOCRIT 33.6 % (36.0-47.0); HEMOGLOBIN 10.6 g/dL (12.0-15.5); RED BLOOD COUNT 3.78 x10^6/uL (3.50-5.40); RED CELL DISTRIBUTION WIDTH 15.2 % (11.5-14.5); WHITE BLOOD COUNT 14.5 x10^3/uL (4.0-11.0)
[2019-08-17 06:43] LABS: ALBUMIN 2.8 g/dL (3.4-5.0); ALBUMIN/GLOBULIN RATIO 0.6 (1.0-1.7); CALCIUM 8.9 mg/dL (8.5-10.1); POTASSIUM 3.3 mmol/L (3.5-5.1); TOTAL BILIRUBIN 0.3 mg/dL (0.2-1.0); TOTAL PROTEIN 7.3 g/dL (6.4-8.2)
[2019-08-17] MEDS: TOPIRAMATE 100 MG TABLET. PO SCH ×2 (08:15→20:34)
[2019-08-17] MEDS: ATORVASTATIN CALCIUM 10 MG TABLET. PO SCH (08:15)
[2019-08-17] MEDS: AZITHROMYCIN 250 MG TABLET. PO SCH (08:15)
[2019-08-17] MEDS: ASPIRIN ENTERIC COATED 81 MG TABLET.DR. PO SCH (08:15)
[2019-08-17] MEDS: CHOLECALCIFEROL (VITAMIN D3) 1,000 UNIT TABLET PO SCH (08:15)
[2019-08-17] MEDS: APIXABAN 2.5 MG TABLET PO SCH ×2 (08:15→20:34)
[2019-08-17] MEDS: LISINOPRIL 20 MG TABLET PO SCH (08:16)
[2019-08-17] MEDS: FAMOTIDINE 20 MG TABLET PO SCH ×2 (08:16→20:33)
[2019-08-17] MEDS: PANTOPRAZOLE 40 MG TABLET. PO SCH (08:16)
[2019-08-17] MEDS: buPROPion SR 100 MG TABLET.SA. PO SCH (08:17)
[2019-08-17] MEDS: ZIPRASIDONE 80 MG CAPSULE. PO SCH ×2 (08:17→20:34)
[2019-08-17] MEDS: BUMETANIDE 1 MG TABLET PO SCH (08:17)
[2019-08-17] MEDS: amLODIPine BESYLATE 2.5 MG TABLET PO SCH (08:17)
[2019-08-17] MEDS ORDERED: TRAM50TA PO (08:22)
[2019-08-17] MEDS ORDERED: FLU VAX QS 2019-20 (36MOS+)/PF 0.5 ML SYRINGE. VAX IM ONE (09:00)
[2019-08-17] MEDS ORDERED: NON FORMULARY ITEM (Tiotropium Bromide (Spiriva) 1 CAP) IH SCH (09:00)
[2019-08-17] MEDS ORDERED: PIP/TAZO PER PHARMACY MC PRN (09:15)
[2019-08-17] MEDS ORDERED: ELECTROLYTE (NON-ICU) PROTOCOL MC PRN (09:15)
[2019-08-17] MEDS: MAGNESIUM OXIDE 400 MG TABLET PO SCH ×2 (09:45→20:34)
[2019-08-17] MEDS: traMADol 50 MG TABLET PO PRN ×2 (09:45→17:20)
[2019-08-17] MEDS: PIPERACILLIN/TAZOBACTAM 4.5 GM in IV NORMAL SALINE 50ML 50 ML IV SCH ×2 (09:46→17:20)
[2019-08-17] MEDS ORDERED: POTASSIUM CHLORIDE 20 MEQ TABLET.ER. PO ONE (10:00)
--- NOTE | 2019-08-17 10:20 | NUR ---
Pts WBC up, zosyn not restarted. Potassium and magnesium low. Spoke with Dr Duncan, got new orders placed. Pt complains of shoulder and chest wall pain due to coughing. Home tramadol dose restarted.
[2019-08-17 10:37] VITALS: BP 113/73
[2019-08-17 15:10] VITALS: BP 100/67
[2019-08-17 19:10] VITALS: BP 110/73
[2019-08-17] MEDS: MONTELUKAST 10 MG TABLET. PO SCH (20:33)
--- NOTE | 2019-08-17 21:20 | PN ---
DATE: 08/17/2019 SUBJECTIVE: The patient is resting, slightly propped up in bed, in no apparent respiratory distress. She continued to have cough that is more productive, but generally feels much better. PHYSICAL EXAMINATION: GENERAL: When I examined her, she was resting slightly propped up in bed, in no apparent respiratory distress. No pallor, jaundice, cyanosis or thyromegaly. No jugular venous distension. No limb edema. VITAL SIGNS: Her heart rate was 88, blood pressure was 110/70, temperature was 97.9, respiratory rate was 18 and oxygen saturation was 97% on 2 liters of oxygen. HEAD, EYES, EARS, NOSE AND THROAT: Showed normocephalic, atraumatic. NECK: Supple. HEART: Showed normal first and second heart sounds with no gallop, rub or murmur. CHEST: Showed central trachea, equal bilateral expansion, air entry, vesicular sounds with crepitation, more so on the right side posteriorly. I could not appreciate any rhonchi. ABDOMEN: Distended, soft, nontender. NEUROLOGIC: She is awake, alert, responding appropriately. All cranial nerves intact. She moves extremities without difficulty. LABORATORY DATA: Her lab work this morning showed a white cell count went up to 14,500, hemoglobin 10.6, hematocrit 33.6, MCV 89 and platelet count 350,000. Her chemistry showed a serum sodium 141, potassium 3.3, chloride was 106, bicarbonate 24, anion gap of 11, BUN 15, creatinine 1, estimated GFR was 56 mL per minute. Her glucose 127, calcium was 8.9. Total bilirubin, AST, ALT, alkaline phosphatase were normal. Total protein was 7.3, albumin was 2.8. ASSESSMENT: Community-acquired pneumonia for which the patient was started on IV Zosyn and Zithromax, resumed all her medications. Other medical problems include: A. Bronchial asthma. B. Hypertension. C. Hyperlipidemia. D. Hypothyroidism. E. Generalized osteoarthritis. F. Morbid obesity, obstructive sleep apnea, on CPAP. G. Chronic kidney disease. PLAN: My plan is to continue with Zosyn and Zithromax. Replenish her potassium, start her on Mucinex and repeat all her lab works tomorrow and evaluate her tomorrow morning. YVAN MIDDLETON MD DR: PORTER/sky JOB#: [id number] / [id number]
[2019-08-17 23:00] VITALS: BP 115/65
[2019-08-18] MEDS: PIPERACILLIN/TAZOBACTAM 4.5 GM in IV NORMAL SALINE 50ML 50 ML IV SCH ×2 (02:39→09:33)
[2019-08-18] MEDS: LEVOTHYROXINE 125 MCG TABLET PO SCH (05:23)
[2019-08-18] MEDS: IPRATRPIUM/ALBUTEROL 0.5/2.5MG 3 ML NEBU. NEB SCH ×2 (05:33→11:26)
[2019-08-18 05:49] VITALS: BP 101/64
[2019-08-18 06:27] LABS: HEMATOCRIT 32.5 % (36.0-47.0); HEMOGLOBIN 10.5 g/dL (12.0-15.5); RED BLOOD COUNT 3.66 x10^6/uL (3.50-5.40); RED CELL DISTRIBUTION WIDTH 15.4 % (11.5-14.5); WHITE BLOOD COUNT 9.4 x10^3/uL (4.0-11.0)
[2019-08-18 06:34] LABS: CALCIUM 8.8 mg/dL (8.5-10.1); CREATININE 1.1 mg/dL (0.6-1.0); GFR 50.2; POTASSIUM 3.8 mmol/L (3.5-5.1)
[2019-08-18] MEDS: traMADol 50 MG TABLET PO PRN (06:34)
[2019-08-18] MEDS ORDERED: LACTOBACILLUS RHAMNOSUS GG 1 CAPSULE. PO SCH (09:00)
[2019-08-18] MEDS: MAGNESIUM OXIDE 400 MG TABLET PO SCH (09:12)
[2019-08-18] MEDS: ASPIRIN ENTERIC COATED 81 MG TABLET.DR. PO SCH (09:13)
[2019-08-18] MEDS: FAMOTIDINE 20 MG TABLET PO SCH (09:13)
[2019-08-18] MEDS: BUMETANIDE 1 MG TABLET PO SCH (09:13)
[2019-08-18] MEDS: PANTOPRAZOLE 40 MG TABLET. PO SCH (09:13)
[2019-08-18] MEDS: LISINOPRIL 20 MG TABLET PO SCH (09:14)
[2019-08-18] MEDS: ATORVASTATIN CALCIUM 10 MG TABLET. PO SCH (09:14)
[2019-08-18] MEDS: CHOLECALCIFEROL (VITAMIN D3) 1,000 UNIT TABLET PO SCH (09:15)
[2019-08-18] MEDS: ZIPRASIDONE 80 MG CAPSULE. PO SCH (09:15)
[2019-08-18] MEDS: AZITHROMYCIN 250 MG TABLET. PO SCH (09:15)
[2019-08-18] MEDS: TOPIRAMATE 100 MG TABLET. PO SCH (09:15)
[2019-08-18] MEDS: APIXABAN 2.5 MG TABLET PO SCH (09:15)
[2019-08-18] MEDS: amLODIPine BESYLATE 2.5 MG TABLET PO SCH (09:15)
[2019-08-18] MEDS: buPROPion SR 100 MG TABLET.SA. PO SCH (09:16)
[2019-08-18 11:48] VITALS: BP 101/68
[2019-08-18] MEDS ORDERED: CEFD300C PO (13:35)
[2019-08-18] MEDS ORDERED: AZIT1PAC PO (13:35)
--- NOTE | 2019-08-18 13:55 | DS ---
DATE OF DISCHARGE: 08/18/2019 HOSPITAL COURSE: The patient is a 64-year-old female patient who was admitted with recurrent episode of cough, shortness of breath and chest pain and muscle spasm together with shaking chills and was extensively investigated. CT angio of the chest showed that she has no pulmonary emboli, however, has patchy bibasilar lung airspace opacities, mostly in the right middle lobe and left lingula and therefore the patient was admitted and was treated for community-acquired pneumonia and was started on Zithromax and Zosyn. She did actually very well and denied any further episodes of chest pain, cough. No chest tightness or wheezing and has been in her chair, maintaining her oxygen saturation at 94-95% on room air at rest and on exertion and she remained afebrile, hemodynamically stable with normal white cell count and therefore, a decision was made to discharge her home to continue treatment with oral antibiotic for her community-acquired pneumonia. PHYSICAL EXAMINATION: GENERAL: When I saw her this afternoon, she looked well and was clearly in no apparent respiratory distress. No pallor, jaundice, cyanosis or thyromegaly. No jugular venous distention. No limb edema. VITAL SIGNS: Her heart rate was 80, blood pressure was 101/66, temperature was 97.3, respiratory rate 20, and oxygen saturation was 94%. HEAD, EYES, EARS, NOSE AND THROAT: Showed normocephalic, atraumatic. NECK: Supple. HEART: Showed normal first and second heart sounds with no gallop, rub or murmur. CHEST: Clear to auscultation. No crepitation or rhonchi. ABDOMEN: Distended, soft, nontender. No guarding or rigidity. No organomegaly. All hernial orifices intact. Bowel sounds normal. NEUROLOGIC: She was awake, alert, responding appropriately. All cranial nerves intact. EXTREMITIES: She moves extremities without difficulty. She ambulates without assistance or assistive devices. LABORATORY DATA: This morning showed a white cell count 9400, hemoglobin 10, hematocrit 33, MCV 89, platelet count 336,000. Her serum sodium 142, potassium 3.8, chloride 106, bicarbonate 24, anion gap of 12, BUN 16, creatinine 1.1, estimated GFR was 50 mL per minute. Her glucose 116, calcium was 8.8. DISCHARGE MEDICATIONS: She was discharged home to continue on cefdinir 300 mg twice a day and Zithromax as directed. She also continues with albuterol sulfate 2 puffs every 4-6 hours as needed, amlodipine besylate 2.5 mg once a day, apixaban 2.5 mg twice a day, aspirin 81 mg once a day, bumetanide 0.5 mg once a day, Wellbutrin 100 mg daily, cholecalciferol (vitamin D3) 1000 international units once a day, levothyroxine sodium 125 mcg once a day, meclizine 25 mg 3 times a day, Singulair 10 mg once a day, nitroglycerin 0.4 mg sublingually every 5 minutes x 3, omeprazole 40 mg daily, pravastatin sodium 20 mg daily, ramipril 10 mg daily, ranitidine 150 mg twice a day, tiotropium bromide 18 mcg 1 inhalation once a day, topiramate 100 mg twice a day, tramadol 100 mg every 6 hours and ziprasidone 80 mg twice a day. FINAL DISCHARGE DIAGNOSES: 1. Community-acquired pneumonia, improved. 2. Bronchial asthma, clinically quiescent. 3. Hypertension. 4. Hyperlipidemia. 5. Hypothyroidism. 6. Generalized osteoarthritis. 7. Morbid obesity, obstructive sleep apnea, on CPAP. 8. Chronic kidney disease. YVAN MIDDLETON MD DR: PORTER/sky JOB#: [id number] / [id number]
[2019-08-18] MEDS ORDERED: FLU VAX QS 2019-20 (36MOS+)/PF 0.5 ML SYRINGE. VAX IM ONE (14:00)
--- NOTE | 2019-08-18 14:39 | NUR ---
Discharge Note: FARIDEH LOVELL [address] Discharge instructions and discharge home medications reviewed with Patient and a copy given. All questions have been answered and understanding verbalized. The following instructions and handouts were given: Take medications as prescribed, follow up with Primary Care Provider within 7-10 days. Discontinued lines and drains: peripheral IV removed, catheter tip intact, pressure dressing applied no apparant complications. Patient discharged to home prior to admission
== END 2019-08-18 14:42 | disposition home or self-care (01) | DRG 194 ==
LOC: ER 06:37 → 1 SOUTH 10:00
PROVIDERS: ADMIT Internal Medicine; ATTEND Internal Medicine
PROC: 5A09357 Assistance with Respiratory Ventilation, Less than 24 Consecutive Hours, Continuous Positive Airway Pressure (ICD-10-PCS; principal; 2019-08-18)
DX: J18.9 Pneumonia, unspecified organism (principal); R65.10 Systemic inflammatory response syndrome (SIRS) of non-infectious origin without acute organ dysfunction; E44.0 Moderate protein-calorie malnutrition; J45.909 Unspecified asthma, uncomplicated; I12.9 Hypertensive chronic kidney disease with stage 1 through stage 4 chronic kidney disease, or unspecified chronic kidney disease; N18.9 Chronic kidney disease, unspecified; F41.9 Anxiety disorder, unspecified; K21.9 Gastro-esophageal reflux disease without esophagitis; F32.9 Major depressive disorder, single episode, unspecified; G43.909 Migraine, unspecified, not intractable, without status migrainosus; E78.00 Pure hypercholesterolemia, unspecified; Z88.8 Allergy status to other drugs, medicaments and biological substances; E83.42 Hypomagnesemia; M15.9 Polyosteoarthritis, unspecified; E78.5 Hyperlipidemia, unspecified; E66.01 Morbid (severe) obesity due to excess calories; Z68.39 Body mass index [BMI] 39.0-39.9, adult; Z96.652 Presence of left artificial knee joint; G47.33 Obstructive sleep apnea (adult) (pediatric); E11.22 Type 2 diabetes mellitus with diabetic chronic kidney disease; Z90.710 Acquired absence of both cervix and uterus; Z90.11 Acquired absence of right breast and nipple; Z85.3 Personal history of malignant neoplasm of breast; E03.9 Hypothyroidism, unspecified
CPT/HCPCS: 36415; 71045; 71275; 80048; 80053; 81001; 83605; 83735; 83880; 84484; 85025; 85027; 87040; 87086; 87449; 87804; 90471; 90686; 93005; 94640; 94760; J0456; J2543; J7620; Q9967; 99285-25; J7030